=== PATIENT | male | born 1945 | race Caucasian/White ===

== ENCOUNTER 2021-07-05 02:45 | Inpatient (IN) | payer MEDICARE, MEDICAID, SELFPAY ==
[2021-07-05] VITALS (20 sets, daily range): BP systolic 70–118; BP diastolic 30–73; PULSE 53–84; RESP 13–30; TEMP 34.9–37; O2SAT 89–96
--- NOTE | 2021-07-05 | DI.US_ITS ---
Exam(s) US RENAL EXAM: US RENAL CLINICAL HISTORY: SHIRLEY in setting of CKD. TECHNIQUE: Yeung scale, color and spectral Doppler were used. COMPARISON: CT CHEST WITH CONTRAST from 07/29/2016 CT CHEST WITH CONTRAST from 07/29/2016 FINDINGS: The patient refused the complete exam. The left kidney was not able to be imaged. Renal size in cm: Right: 8.8 x 4.6 x 5.6. left: Not imaged Echogenicity: Normal Hydronephrosis: No Cyst or mass: 6.8 centimeter maximal dimension cyst lower pole right kidney. 2 centimeter upper pole cyst. Distal 8 millimeter upper pole cyst. Nephrolithiasis: No Bladder:Normal Prevoid vol: 76 cc Postvoid vol:Patient refused IMPRESSION: Right renal cysts. No evidence of hydronephrosis. Left kidney not imaged. DATA REPOSITORY:
--- NOTE | 2021-07-05 03:00 | W.ED.GENAD ---
Discharge Plan Disposition Patient Disposition: [facility] INPATIENT Condition: Stable Discharge Details Chief Complaint: SOB Clinical Impression: COVID-19, Bacterial pneumonia, Acute kidney injury superimposed on chronic kidney disease, Dyspnea Primary Care Provider: Unknown,Unknown ED Provider: Nishant Montague Home Meds and New Rx's Prescriptions: No Action metoprolol tartrate 100 MG tablet 100 mg PO BID RF: 0 hydrocodone-acetaminophen 1 EACH tablet PO PRN PRNRF: 0 nitroglycerin 0.2 MG patch 24 hour 1 patch Transdermal PRN PRNRF: 0 nitroglycerin 0.4 MG tablet, sublingual 0.4 mg PRN (Reason: Chest Pain) RF: 0 mupirocin calcium 15 GM cream RF: 0 omeprazole 20 MG capsule,delayed release(DR/EC) 20 mg PO DAILY RF: 0 furosemide 20 MG tablet 20 mg PO DAILY RF: 0 rosuvastatin 20 MG tablet 1 tab PO DAILY RF: 0 ipratropium-albuterol 3 ML solution for nebulization 3 ml UPD Q6H Qty: 120 RF: 0 guaifenesin 200 MG/10 ML liquid 200 mg PO Q4H PRN PRN (Reason: Cough) Qty: 480 RF: 0 prednisone 20 MG tablet 20 mg PO DIRECTED Qty: 13 RF: 0 levofloxacin [Levaquin] 750 MG tablet 750 mg PO DAILY Qty: 7 RF: 0 Medical Decision Making 75-year-old male with a past medical history of COPD, alcohol abuse, anemia, chronic kidney disease, coronary artery disease, hypertension, high cholesterol, cirrhosis, chronic tracheostomy, who presents today for evaluation of cough and shortness of breath. Patient states that he has had mild shortness of breath with persistent cough for the last 3 weeks. He admits to a very tiny amount of blood tingeing his sputum when he coughs for the last few days. He admits to some mild chest tightness with cough, but denies any chest pain that is new. Patient was at [facility] emergency department earlier this evening, and departed from there 1 hour prior to arrival here. He drove directly here shortly thereafter. At the [facility] ED he was seen by Dr. Forte, who performed laboratory and cardiac work-up. He was noted to have mild acute kidney injury superimposed on his chronic renal disease, as well as an infiltrative process on his chest x-ray. EKG and troponin were at baseline. He was given fluids out of concern for prerenal etiology, as well as Rocephin and azithromycin. The patient refused his Covid test there. Shortly thereafter the patient stated he wanted to go home and did not want to stay at [facility]. He was sent a prescription for Augmentin and azithromycin for outpatient antibiotics but instead of going home drove directly to [facility] emergency department. Patient denies any other complaints at this time. No other modifying factors. He has not had the Covid vaccine. Physical exam demonstrates diminished lung sounds throughout, oxygenation status stable. Does not appear to be in overt respiratory distress. I did asked what the patient's goals were tonight, and he states that it is to be admitted here as he did not want to be admitted at [facility]. I did personally contact Dr. Forte, and discussed the entire case with him. He also reiterates that he did recommend to the patient that the patient stay overnight due to his age, comorbidities, and findings, but the patient refused statin. I do feel it is reasonable to keep the patient overnight here for further evaluation and management. No major indication to repeat all of his studies. We'll contact the hospitalist for admission. The patient does agree to a Covid test at this time. 4 AM Records from [facility] have been faxed over, x-ray results demonstrate bibasilar opacities that are noted concerning for pneumonia. Blood cultures were ordered and collected. proBNP was only 542. Creatinine was 3.5 and BUN was 72 concerning for a prerenal azotemia here his creatinine has improved after he got a liter of fluid at [facility]. His creatinine is now 3.1, and BUN is 68. His troponin level was normal. Electrolytes were otherwise stable. He was given 1 L of normal saline, 500 mg of azithromycin, 1 g of ceftriaxone. EKG shows sinus rhythm at 69 with no ischemic changes. 4:37 AM Covid test is returned positive. The patient is out of the window for monoclonal antibody therapy at this time. All the patient's multiple medical comorbidities, age, his bacterial pneumonia, and now also his positive Covid status I do feel that he would benefit from inpatient admission. His acute on chronic renal disease is certainly improved with the IV fluids and I feel he continues to benefit from more IV fluids. We'll do normal saline at 125 an hour. We'll give 10 mg of Decadron. Discussed the case with the hospitalist Dr. Bowie he accepts the patient for admission. I will place bridging orders on his behalf. I have extensively reviewed the treatment plan with the patient. I have addressed all patient concerns at this time. I have also discussed the plan with the admitting physician and they agree with the current assessment and plan and have agreed to assume responsibility for the patient. All parties demonstrate verbal understanding and agreement with our assessment and plan at this time. The documentation in this chart was dictated using Kamida dictation software. Please excuse any dictation errors. HPI General Date/Time Provider Initiated Documentation: 07/05/21 02:48. HPI Narrative: 75-year-old male with a past medical history of COPD, alcohol abuse, anemia, chronic kidney disease, coronary artery disease, hypertension, high cholesterol, cirrhosis, chronic tracheostomy, who presents today for evaluation of cough and shortness of breath. Patient states that he has had mild shortness of breath with persistent cough for the last 3 weeks. He admits to a very tiny amount of blood tingeing his sputum when he coughs for the last few days. He admits to some mild chest tightness with cough, but denies any chest pain that is new. Patient was at [facility] emergency department earlier this evening, and departed from there 1 hour prior to arrival here. He drove directly here shortly thereafter. At the [facility] ED he was seen by Dr. Forte, who performed laboratory and cardiac work-up. He was noted to have mild acute kidney injury superimposed on his chronic renal disease, as well as an infiltrative process on his chest x-ray. EKG and troponin were at baseline. He was given fluids out of concern for prerenal etiology, as well as Rocephin and azithromycin. The patient refused his Covid test there. Shortly thereafter the patient stated he wanted to go home and did not want to stay at [facility]. He was sent a prescription for Augmentin and azithromycin for outpatient antibiotics but instead of going home drove directly to [facility] emergency department. Patient denies any other complaints at this time. No other modifying factors. He has not had the Covid vaccine. Related Data Home Medications Medication Instructions Recorded Confirmed furosemide 20 mg PO DAILY 07/29/16 07/29/16 hydrocodone-acetaminophen PO PRN PRN 07/29/16 metoprolol tartrate 100 mg PO BID 07/29/16 07/29/16 mupirocin calcium 07/29/16 nitroglycerin 0.4 mg PRN 07/29/16 nitroglycerin 1 patch TRANSDERMAL PRN PRN 07/29/16 07/29/16 omeprazole 20 mg PO DAILY 07/29/16 07/29/16 rosuvastatin 1 tab PO DAILY 07/29/16 07/29/16 guaifenesin 200 mg PO Q4H PRN PRN #480 ml 08/01/16 ipratropium-albuterol 3 ml UPD Q6H #120 vial 08/01/16 levofloxacin [Levaquin] 750 mg PO DAILY #7 tablet 08/01/16 prednisone 20 mg PO DIRECTED #13 tab 08/01/16 Previous Rx's Medication Instructions Recorded guaifenesin 200 mg PO Q4H PRN PRN #480 ml 08/01/16 ipratropium-albuterol 3 ml UPD Q6H #120 vial 08/01/16 levofloxacin [Levaquin] 750 mg PO DAILY #7 tablet 08/01/16 prednisone 20 mg PO DIRECTED #13 tab 08/01/16 Allergies Allergy/AdvReac Type Severity Reaction Status Date / Time No Known Allergies Allergy Verified 07/29/16 02:35 Review of Systems All systems reviewed & are unremarkable except as noted in HPI and below PFSH Social History Smoking/Tobacco Use Status: Current every day Smoking risk assessment performed?: Yes Drug use: Never Do you feel safe at home: Yes Do you feel safe in your relationship?: Yes Exam Narrative Exam Narrative: 1.Const: Well-nourished, Well-developed, appearing stated age 2.Eyes: PERRL, no conjunctival injection, and symmetrical lids. 3.ENT: Atraumatic external nose and ears. Moist MM. Neck: Symmetric, trachea midline, No thyromegaly. Tracheostomy in place and unremarkable on exam 4.CVS: +S1/S2, No murmurs or gallops. Peripheral pulses 2+ and equal in all extremities. Brisk capillary refill in all extremities. 5.RESP: Unlabored respiratory effort. Diminished lung sounds throughout 6.GI: Soft, Nontender/Nondistended, No hepatosplenomegaly. No guarding or rebound. 7.MSK: Normocephalic/Atraumatic, Extremities w/o deformity or ttp No cyanosis or clubbing, Normal movement of all extremities 8.Skin: Warm, Dry. No rashes or lesions. 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 Sensation grossly intact, no focal neurologic deficits. 10.Psych: (AAO) x3. Appropriate mood and affect
[2021-07-05 03:37] LABS: Source Nasal/Nares
[2021-07-05 03:38] LABS: BE (Venous) -3 mmol/L (-2-3); HCO3 (Venous) 23 mmol/L (23-28); O2 Sat (Venous) 20 %; TCO2 (Venous) 21 mmol/L (24-29); pCO2 (Venous) 44 mmHg (41-51); pH (Venous) 7.33 (7.31-7.41); pO2 (Venous) 16 mmHg
[2021-07-05 03:42] LABS: Abs Immature Grans 0.06 10^3/uL (0.0-0.06); Absolute Basophil Count 0.02 10^3/uL (0.0-0.2); Absolute Lymphocyte Count 0.92 10^3/uL (1.2-3.4); Absolute Monocyte Count 0.86 10^3/uL (0.1-0.8); Absolute Neutrophil Count 3.26 10^3/uL (1.2-6.7); Basophils % 0.4; HCT 46.7 % (40.0-50.0); Immature Grans % 1.2; MCH 29.5 pg (27.0-33.0); MCHC 32.1 % (32.0-36.0); MCV 91.9 fL (80-95); MPV 10.7 fL (8.0-11.0); Monocytes % 16.8; Neutrophils % 63.6; Nucleated RBC 0 %; Platelet Count 216 10^3/uL (130-400); RBC 5.08 10^6/uL (4.36-5.78); RDW 16.3 % (11.8-14.1); RDW-SD 55.7 fL; WBC 5.12 10^3/uL (4.4-10.8)
[2021-07-05 03:53] LABS: BUN 68 mg/dL (7-18); CREATININE 3.1 mg/dL (0.70-1.30); Calcium 10.3 mg/dL (8.5-10.1); Estimated GFR 19.85 (mL/min/1.73m2); Glucose 109 mg/dL (74-106)
[2021-07-05 03:54] LABS: ALT 16 U/L (16-63); AST 32 U/L (15-37); Albumin 3.4 g/dL (3.4-5.0); Alkaline Phosphatase 74 U/L (46-116); Anion Gap 12.8 mmol/L (3-11); Bilirubin, Total 0.5 mg/dL (0.2-1.0); CO2 23.2 mmol/L (21.0-32.0); Chloride 109 mmol/L (98-107); Potassium 4.5 mmol/L (3.5-5.1); Sodium 145 mmol/L (136-145)
[2021-07-05 04:27] LABS: COVID-19 PCR POSITIVE (Negative)
[2021-07-05] MEDS: Dexamethasone 10 MG/ML VIAL IVP (04:39)
[2021-07-05] MEDS: Normal Saline 1,000 ML 125 ML IV (04:49)
--- NOTE | 2021-07-05 08:38 | HPE_ITS ---
Date of service: 07/05/21 Time of Service: 08:38 Assessment and Plan Assessment and plan (1) Bacterial pneumonia: Status: Acute Assessment and plan: Continue ceftriaxone and azithromycin. Add Acapella and incentive spirometry to his pulmonary toiletry. Use Combivent inhaler via trach mask 4 times daily. As needed albuterol as needed for acute bronchospasm. Provide supplemental oxygen via trach mask. (2) COVID-19: Status: Acute Assessment and plan: Initiate treatment for COVID-19 with Decadron and Remdesivir. Patient is out of the window for antiviral monoclonal antibodies. Recommended proning procedure if he will cooperate. Encourage pulmonary toiletry and early ambulation as tolerated. Monitor daily labs including CBC CMP as well as inflammatory markers including CRP ferritin and D-dimer. Because of his acute on chronic kidney injury he is not a candidate for enoxaparin therefore we will put him on heparin prophylactic therapy. If we see a rise in his D-dimer greater than 2500 consider full dose anticoagulation. (3) Acute kidney injury superimposed on chronic kidney disease: Status: Acute Assessment and plan: Check renal ultrasound. Place Trejo catheter for close monitoring of his urine output. Discontinue IV fluid supplementation in light of his COVID 19 pneumonia (4) Coronary artery disease: Status: Chronic Assessment and plan: Continue his current statin treatment of with rosuvastatin continue nitroglycerin patch and as needed nitroglycerin tablets. Check a troponin level. Monitor on telemetry for any cardiac involvement from his COVID-19 Qualifiers: Coronary Disease-Associated Artery/Lesion type: [place] artery [place] vs. transplanted heart: [place] heart Associated angina: without angina Qualified Code(s): I25.10 - Atherosclerotic heart disease of [place] coronary artery without angina pectoris (5) Alcohol abuse: Status: Chronic Assessment and plan: We will place the patient on folate multivitamin and thiamine and monitor for acute alcohol withdrawal with CIWA protocol History of Present Illness History of Present Illness Chief Complaint: Shortness of breath Narrative: 75-year-old white male with history of COPD status post chronic tracheostomy, anemia, chronic kidney disease, hypertension, coronary artery disease, ci rrhosis, chronic alcohol abuse who presented to [facility] emergency department last night with a 3-week history of shortness of breath and persistent cough. He is unvaccinated for COVID-19 and while in the emergency department he was treated by Dr. Forte who ordered laboratory work-up and [facility] x-ray EKG and troponin level. He was found to have acute kidney injury in the setting of chronic kidney disease with a creatinine 3.5 and a BUN of 72 was felt to be in prerenal azotemia and was given a liter of normal saline. Chest x-ray demonstrated bibasilar opacities concerning for pneumonia and blood cultures were ordered and collected. He was given 1 g of ceftriaxone and 500 mg of azithromycin. Patient refused to COVID test and although he was advised to be admitted for treatment of his acute kidney injury and pneumonia he declined admission at [facility] and drove himself to [facility] emergency department where he was seen by Dr. Nishant Montague. In the ER a Covid test was obtained and he was found to be positive for SARS-CoV-2. As the patient was out of the window for monoclonal antibody treatment it was recommended he be hospitalized and started on Decadron and Remdesivir. Patient will be continued on antibiotic treatment for community-acquired pneumonia as well. Patient is nonverbal due to his tracheostomy and when I went into his room he had a mask over his face and was ignoring my questions. After much prompting and arousal he would nod yes and no to a few of my questions. Patient was started on Decadron 10 mg IV while in our emergency department. Dr. Montague kept him on IV fluids of normal saline at 125 mL/h which I have since discontinued. Patient is indicated to me inability to void. We will obtain a bladder scan and catheterize as needed. We will also get a renal ultrasound to assess his acute kidney injury. Patient's been placed in respiratory isolation due to his COVID- 19 and remdesivir will be started in addition to his Decadron. Although medical records were faxed from [facility] to our emergency department no records were sent up with the patient. I have asked the secretarial staff on the medical/surgical floor to try to obtain records from [facility]. Review of Systems Unobtainable due to endotracheal tube (Due to tracheostomy and patient's unwillingness to engage) [facility] Medical History (Updated 07/05/21 @ 09:34 by Michael Bowie) Alcohol abuse Chronic kidney disease Cirrhosis COPD with exacerbation Coronary artery disease Surgical History Status post tracheostomy Social History Smoking/Tobacco Use Status: Current every day Smoking risk assessment performed?: Yes Drug use: Never Do you feel safe at home: Yes Do you feel safe in your relationship?: Yes Meds Allergies and Home Medications Allergies Allergy/AdvReac Type Severity Reaction Status Date / Time No Known Allergies Allergy Verified 07/29/16 02:35 Home Medications Medication Instructions Recorded Confirmed Type furosemide 20 mg PO DAILY 07/29/16 07/05/21 History hydrocodone-acetaminophen PO PRN PRN 07/29/16 History metoprolol tartrate 100 mg PO BID 07/29/16 07/05/21 History mupirocin calcium 07/29/16 History nitroglycerin 0.4 mg PRN 07/29/16 History nitroglycerin 1 patch TRANSDERMAL PRN PRN 07/29/16 07/05/21 History omeprazole 20 mg PO DAILY 07/29/16 07/05/21 History rosuvastatin 1 tab PO DAILY 07/29/16 07/05/21 History guaifenesin 200 mg PO Q4H PRN PRN #480 ml 08/01/16 07/05/21 Rx ipratropium-albuterol 3 ml UPD Q6H #120 vial 08/01/16 07/05/21 Rx levofloxacin [Levaquin] 750 mg PO DAILY #7 tablet 08/01/16 07/05/21 Rx prednisone 20 mg PO DIRECTED #13 tab 08/01/16 07/05/21 Rx Exam Narrative Exam Narrative: Cachectic appearing elderly gentleman unshaven with a tracheostomy. He appears to be in no acute respiratory distress not using accessory respiratory muscles. Neck is supple nontender no JVD normal carotid pulses Lungs with diffusely diminished breath sounds Heart is regular rate and rhythm Abdomen soft nontender there is some slight suprapubic distention Extremities with muscle wasting but no edema or cyanosis Neuro exam grossly intact no focal motor or sensory deficits no facial asymmetry speech unable to be assessed due to his tracheostomy. Results Labs Result diagrams: 07/05/21 03:30 07/05/21 03:30 Labs: Laboratory Results - last 24 hr 07/05/21 07/05/21 07/05/21 03:30 03:30 03:30 WBC 5.12 RBC 5.08 Hgb 15.0 Hct 46.7 MCV 91.9 MCH 29.5 MCHC 32.1 RDW 16.3 H Plt Count 216 MPV 10.7 Immature Gran % 1.2 Neutrophils % 63.6 Lymphocytes % 18.0 Monocytes % 16.8 Eosinophils % 0.0 Basophils % 0.4 Nucleated RBC % 0 Absolute Neutrophils 3.26 Absolute Lymphocytes 0.92 L Absolute Monocytes 0.86 H Absolute Eosinophils 0.00 Absolute Basophils 0.02 VBG pH VBG pCO2 VBG pO2 VBG HCO3 VBG Total CO2 VBG O2 Saturation VBG Base Excess Sodium 145 Potassium 4.5 Chloride 109 H Carbon Dioxide 23.2 Anion Gap 12.8 H BUN 68 H Creatinine 3.1 H Estimated GFR/1.73 m2 19.85 Glucose 109 H Calcium 10.3 H Total Bilirubin 0.5 AST 32 ALT 16 Alkaline Phosphatase 74 Total Protein 8.0 Albumin 3.4 COVID-19 Source Nasal/Nares SARS-CoV-2 (PCR) POSITIVE A* 07/05/21 03:30 WBC RBC Hgb Hct MCV MCH MCHC RDW Plt Count MPV Immature Gran % Neutrophils % Lymphocytes % Monocytes % Eosinophils % Basophils % Nucleated RBC % Absolute Neutrophils Absolute Lymphocytes Absolute Monocytes Absolute Eosinophils Absolute Basophils VBG pH 7.33 VBG pCO2 44 VBG pO2 16 VBG HCO3 23 VBG Total CO2 21 L VBG O2 Saturation 20 VBG Base Excess -3 L Sodium Potassium Chloride Carbon Dioxide Anion Gap BUN Creatinine Estimated GFR/1.73 m2 Glucose Calcium Total Bilirubin AST ALT Alkaline Phosphatase Total Protein Albumin COVID-19 Source SARS-CoV-2 (PCR) Last Vital Signs Temp 35.4 C L 07/05/21 06:09 Pulse 60 07/05/21 07:00 Resp 20 07/05/21 06:09 BP 100/46 L 07/05/21 06:09 Pulse Ox 91 L 07/05/21 08:02
--- NOTE | 2021-07-05 09:07 | INITIAL_ITS ---
- If Service Date Differs Date of service: 07/05/21 Time of Service: 09:07 Care Management Initial Assess REASON FOR HOSPITALIZATION:: COVID Pneumonia PAST MEDICAL HISTORY/PAST SURGICAL HISTORY:: COPD PREVIOUS FUNCTIONAL STATUS/SOCIAL/FAMILY SUPPORTS:: Liu resides in [place] with his . He has a trach at baseline and is on 2L O2 through [facility] or [employer]. His daughter, Heavenly provides all of his care and monitors his medicati ons. She reports her mother, Zeyenp recently had her foot amputated, so requires support as well. Heavenly states that Liu has had lung cancer for 13 years and was previously on chemo, and Palliative care, but currently has no supports in the home. Heavenly states she provides Liu's trach care. CURRENT FUNCTIONAL STATUS:: Liu is reportedly curled in a ball, refusing to engage with RT. CM attempted to call Zeynep-phone disconnect. Heavenly-left VM. CM also called [place] CM department to inquire to family contact information and home O2 supplier. Today is a holiday, DME and CM office closed today. CM continues to follow. Saurav from RT, reported that later in the day, Liu was much more engaged, and talkative. ADVANCE DIRECTIVES:: Ernestina as agent, Zeynep as alternate, Jamee and Heavenly as others. Has patient been provided with info about the portal/API?: No Did the patient sign up for the portal?: No CODE STATUS:: Full Code INSURANCE COVERAGE / FINANCIAL ISSUES:: Medicare. Medicaid CURRENT HOME/COMMUNITY SERVICES/EQUIPMENT:: Trach, Home O2 PRIMARY CARE PHYSICIAN:: Heavenly Pritchard in [place]; unable to confirm. POTENTIAL DISCHARGE NEEDS:: Follow up with PCP. PATIENT/FAMILY EDUCATION NEEDS:: Review of discharge instructions, discuss [facility] Me [employer]. ANTICIPATED BARRIERS TO DISCHARGE:: None identified. TRANSPORTATION:: Via private vehicle with family. PLAN:: Liu will return home when ready per MD. He will resume home O2, follow up with his PCP and plan of care as prescribed. He will transport via private vehicle with family.
[2021-07-05] MEDS: Azithromycin 250 MG TAB PO (09:50)
[2021-07-05] MEDS: Ipratropium/Albuterol 4 GM 120 PUFF INH IH ×4 (09:51→22:23)
[2021-07-05] MEDS: cefTRIAXone 2 GM/50 ML BAG IVPB (09:51)
[2021-07-05] MEDS: Normal Saline Flush 10 ML SYR IVP (09:53)
[2021-07-05] MEDS: REMDESIVIR 200 MG in Normal Saline 250 ML 250 MG IVPB (09:53)
[2021-07-05] MEDS: Folic Acid 1 MG TAB PO (10:02)
[2021-07-05] MEDS: Heparin 5,000 UNITS/ML VIAL 5000 UNITS SC ×2 (11:05→17:06)
[2021-07-05] MEDS: Lactated Ringers 500 ML 250 ML IV ×2 (11:06→21:28)
[2021-07-05] MEDS: Multivitamin TAB 1 TAB PO (11:07)
[2021-07-05] MEDS: Rosuvastatin 10 MG TAB 20 MG PO (11:07)
[2021-07-05] MEDS: THIAMINE 100 MG in Normal Saline 100 ML 200 MG IVPB (11:08)
[2021-07-05 12:00] LABS: Troponin I < 0.05 ng/mL (<0.06)
[2021-07-05 12:23] LABS: Procalcitonin < 0.1 ng/mL
[2021-07-05] MEDS: Mupirocin 2% 15 GM TUBE TP ×2 (13:53→17:06)
[2021-07-05] MEDS: Lactated Ringers 1,000 ML 125 ML IV (20:30)
--- NOTE | 2021-07-05 22:00 | RT.EKG_ITS ---
APPROVED REPORT Exam: Resting ECG Reason for Exam: Chest pain Patient Location: I HR:62 bpm ECG Measurements Heart Rate 62 AXIS VT 141 P 99 QRSd 99 QRS 60 QT 428 T 51 QTc 407 Conclusion Sinus bradycardia...rate< 60
[2021-07-05] MEDS: nitroGLYcerin 0.4 MG TAB SL (22:11)
[2021-07-05 22:50] LABS: HGB 12.5 g/dL (13.5-17.5); MCH 29.8 pg (27.0-33.0); MCHC 32.9 % (32.0-36.0); MCV 90.7 fL (80-95); MPV 10.7 fL (8.0-11.0); Platelet Count 201 10^3/uL (130-400); RBC 4.19 10^6/uL (4.36-5.78); RDW 16.2 % (11.8-14.1); RDW-SD 54.3 fL; WBC 4.87 10^3/uL (4.4-10.8)
[2021-07-05 23:30] LABS: BUN 59 mg/dL (7-18); CREATININE 2.1 mg/dL (0.70-1.30); Calcium 9.4 mg/dL (8.5-10.1); Estimated GFR 31.11 (mL/min/1.73m2); Glucose 144 mg/dL (74-106)
[2021-07-05 23:31] LABS: Anion Gap 9.4 mmol/L (3-11); CO2 20.6 mmol/L (21.0-32.0); Chloride 115 mmol/L (98-107); Potassium 4.1 mmol/L (3.5-5.1); Sodium 145 mmol/L (136-145); Troponin I < 0.05 ng/mL (<0.06)
[2021-07-06] VITALS (115 sets, daily range): BP systolic 64–147; BP diastolic 23–121; PULSE 49–180; RESP 12–41; TEMP 35.8–36.5; O2SAT 88–96
--- NOTE | 2021-07-06 | DI.CT_ITS ---
Exam(s) CT ABDOMEN PELVIS WO EXAM: CT ABDOMEN PELVIS WO CLINICAL HISTORY: ascites, hypotension, abd pain TECHNIQUE: COMPARISON: No exams were available for comparison FINDINGS: CT examination of the abdomen and pelvis was performed without contrast administration. Note is made of coronary artery calcification. Heart is not enlarged. Images obtained through the lung bases show multiple areas of ground-glass opacification and consolid ation, please correlate regarding the possibility of acute infectious process. There are multiple low-attenuation lesions of the liver and kidneys consistent with cysts, the larges t is an 8 cm in diameter left renal presumed cyst. There are nonobstructing calculi of the left kidney. There is also an obstructing calculus of the le ft ureteropelvic junction measuring about 7 millimeters in greatest diameter with moderate associated left hydronephrosis. No right renal calcification or hydronephrosis seen. No additional ureteral calcification. Spleen is unremarkable in appearance. Pancreas appears atrophic but otherwise unremarkable. No bili randell dilatation. Abdominal aorta is of normal diameter. No gross abdominal wall hernia. Bowel is poorly visualized due to motion artifact. No evidence of bowel obstruction. Appendix is no rmal. No gross diverticulitis. There is a Trejo catheter in the urinary bladder which is empty. No ascites. No free intraperitoneal air. Slightly enlarged lymph node which probably lies in the si gmoid mesocolon, measuring about 14 millimeters in diameter. No gross adenopathy seen elsewhere in t he abdomen or pelvis. IMPRESSION: 7 millimeter in diameter obstructing left ureteropelvic junction calculus. Additional non-obstructing left renal calculi are also seen. Pulmonary findings suggestive of patchy multifocal bibasilar pneumonia. RADIATION DOSE DELIVERED: 720.66mGy.cm Total DLP CTDIvol RADIATION OPTIMIZATION: All CT scans at this facility use at least one of these dose optimization te chniques: automated exposure control; mA and/or kV adjustment per patient size (includes targeted exa ms where dose is matched to clinical indication); or iterative reconstruction.
--- NOTE | 2021-07-06 00:05 | NUR.NOTE ---
Nursing Note: Transferred to ICU 2335. Report taken by Mary Presley RN. Clothing accompanied patient.
--- NOTE | 2021-07-06 00:08 | PGE_ITS ---
Date of Service Date of service: 07/05/21 Time of Service: 23:49 Assessment and Plan Assessment and plan (1) Hypotension: Status: Acute Assessment and plan: His kidney function has improved. His blood pressure has stabilized with the IV fluids. His troponin is negative. At the present time we'll back off on the fluid administration from 125 cc an hour to 100 cc an hour. He will be watched the intensive care unit. Subjective Subjective Interval history since last seen: Nursing staff called about 1 hour ago with a blood pressure 70 systolic. Patient was having some difficulty with mentation but that seemed to improve with a bolus of Ringer's lactate of 250 cc. His pre ssure went up to approximately 70 systolic. Patient also complained of some chest pain that was not relieved with nitroglycerin. Labs and electrocardiogram ordered and the patient was moved to the intensive care unit. Upon presentation here in the ICU his blood pressure went up to 92/50 without other intervention. Exam Const General: cooperative, no acute distress and ill appearing GI Inspection: non-distended Palpation: no hepatosplenomegaly and nontender Extrem General: normal to inspection, no pedal edema and no calf tenderness Objective Last Vital Signs Temp 35.8 C L 07/05/21 22:16 Pulse 58 L 07/05/21 22:16 Resp 26 H 07/05/21 22:16 BP 75/45 L 07/05/21 22:16 Pulse Ox 94 07/05/21 22:16 Laboratory Results - last 24 hr 07/05/21 07/05/21 07/05/21 03:30 03:30 03:30 WBC 5.12 RBC 5.08 Hgb 15.0 Hct 46.7 MCV 91.9 MCH 29.5 MCHC 32.1 RDW 16.3 H Plt Count 216 MPV 10.7 Immature Gran % 1.2 Neutrophils % 63.6 Lymphocytes % 18.0 Monocytes % 16.8 Eosinophils % 0.0 Basophils % 0.4 Nucleated RBC % 0 Absolute Neutrophils 3.26 Absolute Lymphocytes 0.92 L Absolute Monocytes 0.86 H Absolute Eosinophils 0.00 Absolute Basophils 0.02 VBG pH VBG pCO2 VBG pO2 VBG HCO3 VBG Total CO2 VBG O2 Saturation VBG Base Excess Sodium 145 Potassium 4.5 Chloride 109 H Carbon Dioxide 23.2 Anion Gap 12.8 H BUN 68 H Creatinine 3.1 H Estimated GFR/1.73 m2 19.85 Glucose 109 H Calcium 10.3 H Total Bilirubin 0.5 AST 32 ALT 16 Alkaline Phosphatase 74 Troponin I Total Protein 8.0 Albumin 3.4 Procalcitonin COVID-19 Source Nasal/Nares SARS-CoV-2 (PCR) POSITIVE A* Patient ABO/Rh Antibody Screen 07/05/21 07/05/21 07/05/21 03:30 11:30 11:30 WBC RBC Hgb Hct MCV MCH MCHC RDW Plt Count MPV Immature Gran % Neutrophils % Lymphocytes % Monocytes % Eosinophils % Basophils % Nucleated RBC % Absolute Neutrophils Absolute Lymphocytes Absolute Monocytes Absolute Eosinophils Absolute Basophils VBG pH 7.33 VBG pCO2 44 VBG pO2 16 VBG HCO3 23 VBG Total CO2 21 L VBG O2 Saturation 20 VBG Base Excess -3 L Sodium Potassium Chloride Carbon Dioxide Anion Gap BUN Creatinine Estimated GFR/1.73 m2 Glucose Calcium Total Bilirubin AST ALT Alkaline Phosphatase Troponin I < 0.05 Total Protein Albumin Procalcitonin COVID-19 Source SARS-CoV-2 (PCR) Patient ABO/Rh O Positive Antibody Screen NEGATIVE 07/05/21 07/05/21 07/05/21 11:30 22:30 22:30 WBC 4.87 RBC 4.19 L Hgb 12.5 L D Hct 38.0 L MCV 90.7 MCH 29.8 MCHC 32.9 RDW 16.2 H Plt Count 201 MPV 10.7 Immature Gran % Neutrophils % Lymphocytes % Monocytes % Eosinophils % Basophils % Nucleated RBC % Absolute Neutrophils Absolute Lymphocytes Absolute Monocytes Absolute Eosinophils Absolute Basophils VBG pH VBG pCO2 VBG pO2 VBG HCO3 VBG Total CO2 VBG O2 Saturation VBG Base Excess Sodium 145 Potassium 4.1 Chloride 115 H Carbon Dioxide 20.6 L Anion Gap 9.4 BUN 59 H Creatinine 2.1 H D Estimated GFR/1.73 m2 31.11 Glucose 144 H Calcium 9.4 Total Bilirubin AST ALT Alkaline Phosphatase Troponin I < 0.05 Total Protein Albumin Procalcitonin < 0.1 COVID-19 Source SARS-CoV-2 (PCR) Patient ABO/Rh Antibody Screen
[2021-07-06 00:30] LABS: D-Dimer 743 ng/mlFEU (<500)
[2021-07-06] MEDS: Heparin 5,000 UNITS/ML VIAL 5000 UNITS SC ×4 (01:00→22:42)
[2021-07-06] MEDS: Lactated Ringers 1,000 ML 125 ML IV (01:01)
[2021-07-06 02:09] LABS: *AMPHETAMINES SCREEN URINE Negative (Negative); *BARBITURATES SCREEN URINE Negative (Negative); *BENZODIAZEPINES SCREEN URINE Negative (Negative); Cannabinoids THC Negative (Negative); Cocaine Screen,Urine Negative (Negative); METHADONE URINE SCREEN Negative (Negative); OPIATES URINE SCREEN Positive (Negative); Tricyclic Antidepressants Negative (Negative)
[2021-07-06] MEDS: HYDROcodone 5/Acetaminophen 325 TAB PO ×3 (04:11→20:11)
[2021-07-06] MEDS: POTASSIUM CHLORIDE 20 MEQ/100 ML BAG 50 MEQ IVPB (04:13)
[2021-07-06] MEDS: Polyethylene Glycol 3350 17 GM PACKET PO (06:25)
[2021-07-06] MEDS: Docusate Sodium 100 MG CAP PO (06:25)
--- NOTE | 2021-07-06 06:45 | RT.EKG_ITS ---
APPROVED REPORT Exam: Resting ECG Reason for Exam: SVT Patient Location: I HR:142 bpm ECG Measurements Heart Rate 142 AXIS SC [id number] P [id number] QRSd 81 QRS 59 QT 271 T 250 QTc 417 Conclusion Atrial fibrillation...V-rate 82-211, irreg A-activity Repolarization abnormality, prob rate related...ST dep, T neg, tachycardia
[2021-07-06] MEDS: dilTIAZem 25 MG/5 ML VIAL 15 MG IVP (07:13)
[2021-07-06 07:49] LABS: Abs Immature Grans 0.06 10^3/uL (0.0-0.06); Absolute Basophil Count 0.01 10^3/uL (0.0-0.2); Absolute Lymphocyte Count 0.86 10^3/uL (1.2-3.4); Absolute Monocyte Count 0.69 10^3/uL (0.1-0.8); Basophils % 0.1; HGB 13.5 g/dL (13.5-17.5); Immature Grans % 0.9; Lymphocytes % 12.5; MCH 29.9 pg (27.0-33.0); MCHC 32.9 % (32.0-36.0); MCV 90.9 fL (80-95); MPV 10.7 fL (8.0-11.0); Neutrophils % 76.5; Nucleated RBC 0 %; Platelet Count 221 10^3/uL (130-400); RBC 4.51 10^6/uL (4.36-5.78); RDW 16.3 % (11.8-14.1)
[2021-07-06 07:50] LABS: Absolute Neutrophil Count 5.26 10^3/uL (1.2-6.7)
[2021-07-06 07:51] LABS: WBC 6.87 10^3/uL (4.4-10.8)
[2021-07-06 08:19] LABS: Calcium 9.5 mg/dL (8.5-10.1)
[2021-07-06 08:20] LABS: ALT 11 U/L (16-63); AST 21 U/L (15-37); Albumin 2.6 g/dL (3.4-5.0); Alkaline Phosphatase 60 U/L (46-116); BUN 58 mg/dL (7-18); Bilirubin, Total 0.3 mg/dL (0.2-1.0); CREATININE 2.3 mg/dL (0.70-1.30); Chloride 113 mmol/L (98-107); Estimated GFR 28.01 (mL/min/1.73m2); Ferritin 119 ng/mL (26-388); Glucose 111 mg/dL (74-106); Sodium 146 mmol/L (136-145); TSH (W/Ref FT4) 0.33 uIU/mL (0.36-3.74); Total Protein 6.3 g/dL (6.4-8.2)
[2021-07-06 08:29] LABS: D-Dimer 824 ng/mlFEU (<500); INR 1.3 (0.9-1.1); Prothrombin Time 12.9 sec (9.3-11.0)
[2021-07-06 08:36] LABS: C-Reactive Protein 2.93 mg/dL (0.0-0.3); FREE T4 1.43 ng/dL (0.76-1.46)
[2021-07-06] MEDS: Lactated Ringers 1,000 ML 100 ML IV (08:49)
[2021-07-06] MEDS: Thiamine 100 MG TAB PO (08:54)
[2021-07-06] MEDS: Multivitamin TAB 1 TAB PO (08:54)
[2021-07-06] MEDS: Rosuvastatin 10 MG TAB 20 MG PO (08:54)
[2021-07-06] MEDS: Dexamethasone 4 MG/ML VIAL 6 MG IVP (08:54)
[2021-07-06] MEDS: Omeprazole 20 MG CAPCR PO (08:54)
[2021-07-06] MEDS: Azithromycin 250 MG TAB PO (08:54)
[2021-07-06] MEDS: Mupirocin 2% 15 GM TUBE TP ×4 (08:56→21:27)
[2021-07-06] MEDS: Folic Acid 1 MG TAB PO (08:56)
--- NOTE | 2021-07-06 09:11 | PUCC_ITS ---
General Date of Service Date of service: 07/06/21 Time of Service: 07:30 Reason for Admission to ICU: Afib with RVR COVID Hypotension Assessment and Plan Assessment and plan (1) Left ureteral stone: Status: Acute (2) Atrial fibrillation with rapid ventricular response: Status: Acute (3) Hypotension: Status: Acute (4) Alcohol abuse: Status: Chronic (5) COPD (chronic obstructive pulmonary disease): Status: Chronic (6) COVID-19: Status: Acute (7) Acute kidney injury superimposed on chronic kidney disease: Status: Acute (8) Ascites: Status: Acute Assessment and plan: This is a 75 yo man with COPD and a chronic tracheostomy who has COVID and is admitted to the ICU for atrial fibrillation with RVR and hypotension. He had worsened hypotension in the setting of receiving diltiazem and his heart rate had remained uncontrolled. On FAST exam he also has what is likely ascites and so I recommended a CT Abd/Pel given an unclear history and significant abdominal pain on exam. This CT found a 7mm obstructing stone for which Urology was consulted and recommended a conservative approach to see if the stone would pass on its own. The pain from this could be the cause for his difficult to control A. fib. I do not beleive he has a bacterial pneumonia based on labs, imaging and clinical picture. Recommendations Pulmonary: COPD - not in exacerbation - continue patients home regimen - Breo and Incruse (Symbicort and Incruse while admitted) - discontinue Combivent - Xopenex prn - try to obtain speaking valve and inner cannula for trach Cardiac: Atrial Fibrillation with RVR - recommend esmolol for a goal HR <110 - recommend starting home metoprolol 12.5 in the morning if blood pressure remains stable - if vasopressor is needed would favor phenylephrine to limit tachycardia - this has the potential do decrease cardiac output in the setting of esmolol so monitor closely - can consider starting anticoagulation once more stable Hypotension - likely due to A. fib - phenylephrine if required - caution as above Renal: Obstruction renal stone - urology on board - pain control - Trejo catheter - can likely discontinue fluids in the morning and monitor UOP I&O: Intake & Output 07/03/21 07/04/21 07/05/21 07/06/21 23:59 23:59 23:59 23:59 Intake Total 901 / 901 1572.583 / 1572.583 Output Total 325 / 325 230 / 230 Balance 576 / 576 1342.583 / 1342.583 Weight 65.771 kg 68.5 kg Daily Fluid Goal:: even to slightly positive GI Nutrition: OK for diet Date of Last Bowel Movement: 07/05/21 Infectious Disease: COVID - receiving Decadron and remdesivir as well as azithromycin - I do not think he requires azithromycin - O2 support for sats 88-92 Hematologic: Elevated INR - i nthe setting of cirrhosis Neurologic: Poor historian Delirium prevention measures Endocrine: Monitor glucose levels Prophylaxis: heparin, on home omeprazole Code Status: Resuscitation Status Full Code Subjective Critical and life-threatening events over the past 24 hours: This is a complicated 75 yo man with COPD and a chronic tracheostomy, liver cirrhosis and a poor historian who was admitted to the ICU for hypotension and A. fib with RVR. He also has COVID, however has mild disease. Upon my assessment this morning his heart rate was in the 140's to 150's. He had previously received a diltiazem bolus which dropped his blood pressure. His blood pressure is low as well wih MAP's in the 50's. On my assessment he complains of abdominal pain. He denies trouble breathing. He has his trach in place with a trach collar but does not have a speaking valve with him. He tells me he does not drink and has no liver issues, but has both of these issues documented in his problem list. He also tells me he does not think he has ever had A.fib. He also complains of constipation over several days. Exam Narrative Exam Narrative: POCUS 07/06/21: Views limited by both lung air and bowel air. 4 chamber view and subxyphoid view seen satisfactorily. LV is hyperdynamic. No RV dysfunction. Likely a normal EF. No pericardial effusion. Plethoric IVC. Abdo karuna FAST exam performed: There is free fluid in Morisons pouch and fluid seen at the interface of the spleen and kidney. Bladder appears normal. Const General: no acute distress Nutritional Appearance: well nourished [facility] Head: normocephalic Ears: external ears normal and no periauricular adenopathy General nose exam: nasal mucous membranes and turbinates normal Face and sinus: sinuses nontender Mouth: oropharynx normal and moist mucous membranes Teeth and gingiva: other (tracheostomy in place) Eyes General: appearance normal, both eyes and all related structures Pupils: PERRL Neck Neck: normal visual inspection and no lymphadenopathy Chest Chest: normal inspection of the chest Resp Effort & Inspection: normal respiratory effort Auscultation: clear to auscultation bilaterally, no rales, no rhonchi and no wheezes Cardio Rate: regular rate Rhythm: regular rhythm Heart Sounds: S1 normal, S2 normal and no murmurs Pulses: radial pulses present bilaterally GI Inspection: normal to inspection Palpation: tender and ascites Skin General skin exam: no rashes or lesions noted Neuro General: patient alert, patient awake and patient oriented x3 Extrem General: no clubbing, cyanosis or edema Psych Mental Status: mental status grossly normal Affect: normal affect Attitude: cooperative Most Recent VS/Results Last Vital Signs Temp 36.5 C 07/06/21 04:10 Pulse 180 H 07/06/21 09:05 Resp 30 H 07/06/21 07:56 BP 78/63 L 07/06/21 07:56 Pulse Ox 92 07/06/21 07:56 Laboratory Results - last 24 hr 07/05/21 07/05/21 07/05/21 11:30 11:30 11:30 WBC RBC Hgb Hct MCV MCH MCHC RDW Plt Count MPV Immature Gran % Neutrophils % Lymphocytes % Monocytes % Eosinophils % Basophils % Nucleated RBC % Absolute Neutrophils Absolute Lymphocytes Absolute Monocytes Absolute Eosinophils Absolute Basophils PT INR D-Dimer Sodium Potassium Chloride Carbon Dioxide Anion Gap BUN Creatinine Estimated GFR/1.73 m2 Glucose Calcium Ferritin Total Bilirubin AST ALT Alkaline Phosphatase Troponin I < 0.05 C-Reactive Protein Total Protein Albumin Procalcitonin < 0.1 TSH Free T4 Urine Opiates Screen Urine Methadone Screen Ur Barbiturates Screen Ur Tricyclics Screen Ur Amphetamines Screen U Benzodiazepines Scrn Urine Cocaine Screen Ur THC Screen Patient ABO/Rh O Positive Antibody Screen NEGATIVE 07/05/21 07/05/21 07/05/21 17:17 22:30 22:30 WBC 4.87 RBC 4.19 L Hgb 12.5 L D Hct 38.0 L MCV 90.7 MCH 29.8 MCHC 32.9 RDW 16.2 H Plt Count 201 MPV 10.7 Immature Gran % Neutrophils % Lymphocytes % Monocytes % Eosinophils % Basophils % Nucleated RBC % Absolute Neutrophils Absolute Lymphocytes Absolute Monocytes Absolute Eosinophils Absolute Basophils PT INR D-Dimer Sodium 145 Potassium 4.1 Chloride 115 H Carbon Dioxide 20.6 L Anion Gap 9.4 BUN 59 H Creatinine 2.1 H D Estimated GFR/1.73 m2 31.11 Glucose 144 H Calcium 9.4 Ferritin Total Bilirubin AST ALT Alkaline Phosphatase Troponin I < 0.05 C-Reactive Protein Total Protein Albumin Procalcitonin TSH Free T4 Urine Opiates Screen Positive Urine Methadone Screen Negative Ur Barbiturates Screen Negative Ur Tricyclics Screen Negative Ur Amphetamines Screen Negative U Benzodiazepines Scrn Negative Urine Cocaine Screen Negative Ur THC Screen Negative Patient ABO/Rh Antibody Screen 07/05/21 07/06/21 07/06/21 23:15 05:55 07:30 WBC RBC Hgb Hct MCV MCH MCHC RDW Plt Count MPV Immature Gran % Neutrophils % Lymphocytes % Monocytes % Eosinophils % Basophils % Nucleated RBC % Absolute Neutrophils Absolute Lymphocytes Absolute Monocytes Absolute Eosinophils Absolute Basophils PT INR D-Dimer 743 H Sodium 146 H Potassium 4.0 Chloride 113 H Carbon Dioxide 21.0 Anion Gap 12.0 H BUN 58 H Creatinine 2.3 H Estimated GFR/1.73 m2 28.01 Glucose 111 H Calcium 9.5 Ferritin 119 Total Bilirubin 0.3 AST 21 ALT 11 L Alkaline Phosphatase 60 Troponin I Cancelled C-Reactive Protein 2.93 H Total Protein 6.3 L Albumin 2.6 L Procalcitonin TSH 0.33 L Free T4 1.43 Urine Opiates Screen Urine Methadone Screen Ur Barbiturates Screen Ur Tricyclics Screen Ur Amphetamines Screen U Benzodiazepines Scrn Urine Cocaine Screen Ur THC Screen Patient ABO/Rh Antibody Screen 07/06/21 07/06/21 07:30 07:30 WBC 6.87 D RBC 4.51 Hgb 13.5 Hct 41.0 MCV 90.9 MCH 29.9 MCHC 32.9 RDW 16.3 H Plt Count 221 MPV 10.7 Immature Gran % 0.9 Neutrophils % 76.5 Lymphocytes % 12.5 Monocytes % 10.0 Eosinophils % 0.0 Basophils % 0.1 Nucleated RBC % 0 Absolute Neutrophils 5.26 Absolute Lymphocytes 0.86 L Absolute Monocytes 0.69 Absolute Eosinophils 0.00 Absolute Basophils 0.01 PT 12.9 H INR 1.3 H D-Dimer 824 H Sodium Potassium Chloride Carbon Dioxide Anion Gap BUN Creatinine Estimated GFR/1.73 m2 Glucose Calcium Ferritin Total Bilirubin AST ALT Alkaline Phosphatase Troponin I C-Reactive Protein Total Protein Albumin Procalcitonin TSH Free T4 Urine Opiates Screen Urine Methadone Screen Ur Barbiturates Screen Ur Tricyclics Screen Ur Amphetamines Screen U Benzodiazepines Scrn Urine Cocaine Screen Ur THC Screen Patient ABO/Rh Antibody Screen Review of Systems All systems reviewed & are unremarkable except as noted in HPI and below Time spent with patient Time spent in Critical Care: 45 Time spent in Critical care included: Coordination of care, Chart review, Documenting critically ill care, Time at immediate bedside and Discussing critically ill care with other medical staff
[2021-07-06] MEDS: ESMOLOL 2,500 MG/250 ML BAG 210 MG IV (09:30)
[2021-07-06] MEDS: Omnipaque 350 MG/ML 50 ML BTL PO (09:52)
[2021-07-06] MEDS: Breeza Beverage 473 ML BTL PO ×2 (09:53→09:54)
[2021-07-06 10:14] LABS: HIV-1/2 Ag & Ab Screen Negative (Negative)
--- NOTE | 2021-07-06 10:28 | W.NUTRFU ---
Date of service: 07/06/21 Time of Service: 10:29 Nutrition Note NOTE: Assessment: Mr. Posey is admitted Covid positive and a history of ETOH. Getting Folic Acid and MVI. Ordered for a regular diet with regular consistency. Looking back at his weights over the past few years, his weight has been stable. He is currently 170 cm and 68.5 kg. BMI is 23.7 kg/m2 which is WNL. Nutrition Diagnosis: None at this time. Intervention: Regular diet. Monitoring and Evaluation: Will continue to monitor PO and weight. Will evaluate nutrition care plan ongoing and adjust as needed. Time Spent in Nutritional Counseling and Treatment: 0
[2021-07-06 10:38] LABS: HBs Antibody, Qual Negative (See Note); HBs Antibody, Quant <3.1 mIU/mL (See Note); Hepatitis B Core Antibody Negative (Negative); Hepatitis B surface Ag Negative (Negative); Hepatitis C Ab w Rflx HCV PCR Negative (Negative)
--- NOTE | 2021-07-06 10:53 | PDOC.CMPRO ---
- If Service Date Differs Date of service: 07/06/21 Time of Service: 10:53 Care Management Progress Note S/O: Liu was transferred to the ICU as he went into Afib with RVR, per MD. CT showed obstructing 7mm stone with moderate hydronephrosis per MD, and will be monitored, Dr. Camacho consulted. Dr. Pina has discussed this with Liu Do's daughter and agent. CM continues to follow. A: 75 year old male admitted to [facility] 07/05/21 for Covid, Pneumonia P: Liu will return home when ready per MD. He will resume home O2, follow up with his PCP and plan of care as prescribed. He will transport via private vehicle with family.
--- NOTE | 2021-07-06 11:25 | PHA.REVIEW ---
Pharmacy Admission Review - Admission Clinical Review (Last Updated 07/05/21 @ 09:34 by Michael oBwie) Hypotension (Acute) COVID-19 (Acute) Bacterial pneumonia (Acute) Acute kidney injury superimposed on chronic kidney disease (Acute) Dyspnea (Acute) No Known Allergies Allergy (Verified 07/29/16 02:35) Resuscitation Status Full Code Height 5 ft 7 in Weight 68.5 kg - Renal Dosing Renal Dosing: BUN 58 mg/dL (7-18) H 07/06/21 07:30 Creatinine 2.3 mg/dL (0.70-1.30) H 07/06/21 07:30 Medications needing adjustments: Reviewed List of meds needing interventions: ALL MEDS DOSED APPROPRIATELY - Anticoagulation Anticoagulation: Hgb 13.5 g/dL (13.5-17.5) 07/06/21 07:30 Hct 41.0 % (40.0-50.0) 07/06/21 07:30 Plt Count 221 10^3/uL (130-400) 07/06/21 07:30 INR 1.3 (0.9-1.1) H 07/06/21 07:30 Creatinine 2.3 mg/dL (0.70-1.30) H 07/06/21 07:30 DVT Prophylaxis: Reviewed Medications: Heparin Therapeutic Anticoagulation: N/A - Opiate Usage Evaluate Pain Scale/Pains Meds: Reviewed (HYDROCODONE PRN) Scheduled Bowel Reg ordered if on Opiates?: No (PRN ORDERS) - Relevant Labs Sodium 146 mmol/L (136-145) H 07/06/21 07:30 Potassium 4.0 mmol/L (3.5-5.1) 07/06/21 07:30 Chloride 113 mmol/L (98-107) H 07/06/21 07:30 C-Reactive Protein 2.93 mg/dL (0.0-0.3) H 07/06/21 07:30 Electrolytes, C-Reactive P, ESR: Reviewed - DM Control DM Control: Glucose 111 mg/dL (74-106) H 07/06/21 07:30 Insulin Dosing: N/A - Heart Failure/WV Heart Failure/WV: Troponin I Cancelled 07/06/21 05:55 EF%, ALIVIA's, B-Blockers, Diuretics: Reviewed - BP Control BP Control: Blood Pressure [Left Arm] 96/51 Blood Pressure [Left Arm] 92/49 Blood Pressure 78/63 Blood Pressure 85/48 Blood Pressure 82/51 Blood Pressure 88/23 Blood Pressure 79/43 Blood Pressure 80/47 Blood Pressure 90/37 Blood Pressure 87/41 Blood Pressure 82/53 Blood Pressure 100/80 Blood Pressure 106/66 Blood Pressure 106/66 Blood Pressure 126/85 Blood Pressure 102/53 Blood Pressure 84/72 Blood Pressure 64/41 Blood Pressure 85/45 Blood Pressure 92/49 Blood Pressure 100/54 Blood Pressure 129/95 Blood Pressure 105/48 Blood Pressure 98/65 Blood Pressure 99/47 Blood Pressure 97/51 Blood Pressure 95/54 Blood Pressure 96/51 Blood Pressure 98/51 Blood Pressure 89/65 Blood Pressure 89/49 Blood Pressure 85/50 Blood Pressure 82/37 Blood Pressure 92/52 If elevated: Reviewed List meds needing interventions: ESMOLOL DRIP AND PHENYLEPHRINE DRIP ACTIVE - Qtc Review If Elevated: Reviewed (QTC 407 ON ADMISSION) - IV to PO Switch IV Medications: Reviewed - Home Meds Home Med List reviewed: Intervened Relevent Home Meds Not ordered & why?: breo inhaler, furosemide (pt on phenylephrine gtt + esmolol gtt), meclizine, metoprolol (esmolol gtt active), zolpidem; reviewed external med history and updated med rec accordingly -- several additions and dose adjustments. - Current meds Current Medication Order Review: Intervened (updated phenylphrine order for nursing so dose/rate matched the pump)
--- NOTE | 2021-07-06 12:10 | W.PM.PROGNOT ---
Date of Service Date of service: 07/06/21 Time of Service: 12:10 Assessment and Plan Assessment and plan (1) Hypotension: Status: Acute Assessment and plan: Transferred to the ICU d/t hypotension (subsequently developed afib with RVR). Given IV fluids judiciously. Dr Yan initiated Levophed with improvement in BP. (2) Alcohol abuse: Status: Chronic Assessment and plan: CIWA monitoring. PRN Serax. (3) COPD with exacerbation: Status: Acute Assessment and plan: Atrovent QID. Also on Dexamethasone for COVID. (4) COVID-19: Status: Acute Assessment and plan: Continue Remdesivir and Dexamethasone. Pulmonary toilet; Acapella and IS. Vitamin D 2000mg daily. Pulmonary following. He is currently using his baseline 2L supplemental O2 per NC. (5) Atrial fibrillation with rapid ventricular response: Status: Acute Assessment and plan: Initially given diltiazem bolus. Now on Esmolol drip. K+ normal. Mg+ pending. (6) Acute kidney injury superimposed on chronic kidney disease: Status: Acute Assessment and plan: Creatinine: 3.1 > 2.1> 2.3 Gave IV fluids today (judiciously d/t benefit of not overhydrating a COVID pt). Monitor. Subjective Subjective Patient reports: no new complaints and afebrile; denies nausea, vomiting and shortness of breath Exam Narrative Exam Narrative: Cachectic appearing elderly gentleman unshaven with a tracheostomy. He appears to be in no acute respiratory distress not using accessory respiratory muscles. Neck is supple nontender no JVD normal carotid pulses Lungs with diffusely diminished breath sounds Heart is regular rate and rhythm Abdomen soft nontender there is some slight suprapubic distention Extremities with muscle wasting but no edema or cyanosis Neuro exam grossly intact no focal motor or sensory deficits no facial asymmetry speech unable to be assessed due to his tracheostomy. Const General: cooperative, no acute distress and ill appearing Nutritional Appearance: thin Chest Chest: normal inspection of the chest Resp Effort & Inspection: normal respiratory effort Auscultation: diminished lung sounds Cardio Rate: tachycardic Rhythm: abnormal rhythm irregularly irregular GI Inspection: non-distended Palpation: no hepatosplenomegaly and nontender Extrem General: normal to inspection, no pedal edema and no calf tenderness Psych Mental Status: mental status grossly normal Speech and Movement: speech and movement normal Affect: normal affect Attitude: cooperative Objective Last Vital Signs Temp 36.5 C 07/06/21 04:10 Pulse 101 H 07/06/21 11:40 Resp 19 07/06/21 11:40 BP 123/86 07/06/21 11:40 Pulse Ox 95 07/06/21 11:40 Laboratory Results - last 24 hr 07/05/21 07/05/21 07/05/21 11:30 11:30 11:30 WBC RBC Hgb Hct MCV MCH MCHC RDW Plt Count MPV Immature Gran % Neutrophils % Lymphocytes % Monocytes % Eosinophils % Basophils % Nucleated RBC % Absolute Neutrophils Absolute Lymphocytes Absolute Monocytes Absolute Eosinophils Absolute Basophils PT INR D-Dimer Sodium Potassium Chloride Carbon Dioxide Anion Gap BUN Creatinine Estimated GFR/1.73 m2 Glucose Calcium Ferritin Total Bilirubin AST ALT Alkaline Phosphatase Troponin I C-Reactive Protein Total Protein Albumin Procalcitonin < 0.1 TSH Free T4 Urine Opiates Screen Urine Methadone Screen Ur Barbiturates Screen Ur Tricyclics Screen Ur Amphetamines Screen U Benzodiazepines Scrn Urine Cocaine Screen Ur THC Screen HIV 1&2 Ag/Ab, 4th Gen Negative Patient ABO/Rh O Positive Antibody Screen NEGATIVE 07/05/21 07/05/21 07/05/21 17:17 22:30 22:30 WBC 4.87 RBC 4.19 L Hgb 12.5 L D Hct 38.0 L MCV 90.7 MCH 29.8 MCHC 32.9 RDW 16.2 H Plt Count 201 MPV 10.7 Immature Gran % Neutrophils % Lymphocytes % Monocytes % Eosinophils % Basophils % Nucleated RBC % Absolute Neutrophils Absolute Lymphocytes Absolute Monocytes Absolute Eosinophils Absolute Basophils PT INR D-Dimer Sodium 145 Potassium 4.1 Chloride 115 H Carbon Dioxide 20.6 L Anion Gap 9.4 BUN 59 H Creatinine 2.1 H D Estimated GFR/1.73 m2 31.11 Glucose 144 H Calcium 9.4 Ferritin Total Bilirubin AST ALT Alkaline Phosphatase Troponin I < 0.05 C-Reactive Protein Total Protein Albumin Procalcitonin TSH Free T4 Urine Opiates Screen Positive Urine Methadone Screen Negative Ur Barbiturates Screen Negative Ur Tricyclics Screen Negative Ur Amphetamines Screen Negative U Benzodiazepines Scrn Negative Urine Cocaine Screen Negative Ur THC Screen Negative HIV 1&2 Ag/Ab, 4th Gen Patient ABO/Rh Antibody Screen 07/05/21 07/06/21 07/06/21 23:15 05:55 07:30 WBC RBC Hgb Hct MCV MCH MCHC RDW Plt Count MPV Immature Gran % Neutrophils % Lymphocytes % Monocytes % Eosinophils % Basophils % Nucleated RBC % Absolute Neutrophils Absolute Lymphocytes Absolute Monocytes Absolute Eosinophils Absolute Basophils PT INR D-Dimer 743 H Sodium 146 H Potassium 4.0 Chloride 113 H Carbon Dioxide 21.0 Anion Gap 12.0 H BUN 58 H Creatinine 2.3 H Estimated GFR/1.73 m2 28.01 Glucose 111 H Calcium 9.5 Ferritin 119 Total Bilirubin 0.3 AST 21 ALT 11 L Alkaline Phosphatase 60 Troponin I Cancelled C-Reactive Protein 2.93 H Total Protein 6.3 L Albumin 2.6 L Procalcitonin TSH 0.33 L Free T4 1.43 Urine Opiates Screen Urine Methadone Screen Ur Barbiturates Screen Ur Tricyclics Screen Ur Amphetamines Screen U Benzodiazepines Scrn Urine Cocaine Screen Ur THC Screen HIV 1&2 Ag/Ab, 4th Gen Patient ABO/Rh Antibody Screen 07/06/21 07/06/21 07:30 07:30 WBC 6.87 D RBC 4.51 Hgb 13.5 Hct 41.0 MCV 90.9 MCH 29.9 MCHC 32.9 RDW 16.3 H Plt Count 221 MPV 10.7 Immature Gran % 0.9 Neutrophils % 76.5 Lymphocytes % 12.5 Monocytes % 10.0 Eosinophils % 0.0 Basophils % 0.1 Nucleated RBC % 0 Absolute Neutrophils 5.26 Absolute Lymphocytes 0.86 L Absolute Monocytes 0.69 Absolute Eosinophils 0.00 Absolute Basophils 0.01 PT 12.9 H INR 1.3 H D-Dimer 824 H Sodium Potassium Chloride Carbon Dioxide Anion Gap BUN Creatinine Estimated GFR/1.73 m2 Glucose Calcium Ferritin Total Bilirubin AST ALT Alkaline Phosphatase Troponin I C-Reactive Protein Total Protein Albumin Procalcitonin TSH Free T4 Urine Opiates Screen Urine Methadone Screen Ur Barbiturates Screen Ur Tricyclics Screen Ur Amphetamines Screen U Benzodiazepines Scrn Urine Cocaine Screen Ur THC Screen HIV 1&2 Ag/Ab, 4th Gen Patient ABO/Rh Antibody Screen
[2021-07-06] MEDS: Tamsulosin 0.4 MG CAPCR PO (13:11)
[2021-07-06] MEDS: Normal Saline 500 ML IV (13:19)
[2021-07-06 13:35] LABS: Magnesium 1.7 mg/dL (1.8-2.4)
[2021-07-06] MEDS: ESMOLOL 2,500 MG/250 ML BAG 82.2 MG IV ×3 (13:44→22:58)
[2021-07-06] MEDS: Ipratropium/Albuterol 4 GM 120 PUFF INH IH ×2 (14:29→18:43)
--- NOTE | 2021-07-06 15:38 | W.UROLOGYCON ---
Date of service: 07/06/21 Time of Service: 15:38 Assessment and Plan Assessment and plan (1) Left ureteral stone: Status: Acute Assessment and plan: If he develops any signs worrisome for urosepsis, we would need to place a left ureteral stent urgently. So far, he has not shown signs of sepsis and his pain has been managed with oral medications. Given his other comorbidities, he is certainly a poor surgical/anesthetic candidate. I would recommend initially treating him medically with tamsulosin and hydration as tolerated. If he is still symptomatic, we can consider a stent placement. A stent can be placed with sedation alone. A more definitive treatment of the stone would require ureteroscopy under a general anesthetic. He certainly is in no medical condition for a larger procedure at this time. History of Present Illness History of Present Illness Chief Complaint: Left ureteral stone Narrative: This is a 75-year-old gentleman recently admitted to the hospital with COVID-19 infection. The patient is a poor historian, but we do have some records from [facility]. The patient presented to [facility] with a 3-week history of shortness of breath and cough. He refused admission to [facility], but then drove himself to [facility] to be evaluated in our emergency room and be admitted to our facility. He has a history of COPD along with pneumonia. He had a chest xray at [facility] that showed lung infiltrates. He had cultures taken, but they are not available. The xray and cultures were not repeated at our facility. He had been doing reasonably well from the pulmonary standpoint during the hospitalization, but he developed atrial fibrillation and rapid ventricular response requiring transfer to the intensive care unit. He was noted to have some abdominal distension and abdominal pain. A point of care ultrasound raised the possibility of ascites being present. He apparently has a history of chronic renal insufficiency. His creatinine on presentation to [facility] was 3.5. A renal ultrasound was attempted here at our facility, but the patient refused to have a complete procedure and the exam was terminated. He did have a CT of the abdomen and pelvis which demonstrated left hydronephrosis with a proximal left ureteral stone. There are also additional nonobstructing stones in the lower pole of the left kidney. No stones are on the right. The patient does not give a history of prior kidney stones, but on his [facility] records, there is a description of hypercalcemia. He does have some left-sided abdominal discomfort but his discomfort is managed with oral pain medications. He has no fevers or chills. [facility] Medical History (Updated 07/06/21 @ 19:47 by Ana Rosa Yan MD) Alcohol abuse Chronic kidney disease Cirrhosis COPD with exacerbation Coronary artery disease Surgical History Status post tracheostomy Social History Smoking/Tobacco Use Status: Current every day Smoking risk assessment performed?: Yes Drug use: Never Do you feel safe at home: Yes Do you feel safe in your relationship?: Yes Exam Narrative Exam Narrative: He appears chronically ill. He has a tracheostomy His abdomen has left abdominal tenderness on palpation. His asher is draining clear urine I reviewed his CT scan on the PACS system. There is no hydronephrosis on the right, but there is left hydronephrosis with a left proximal ureteral stone. The stone measures approximately 7 mm. Additional nonobstructing stones in the kidney are found. His UA is pending Results Last Vital Signs Temp 36.5 C 07/06/21 04:10 Pulse 101 H 07/06/21 11:40 Resp 19 07/06/21 11:40 BP 123/86 07/06/21 11:40 Pulse Ox 95 07/06/21 11:40 Labs Result diagrams: 07/07/21 05:40 07/07/21 05:40 Labs: Laboratory Results - last 24 hr 07/05/21 07/05/21 07/05/21 11:30 11:30 17:17 WBC RBC Hgb Hct MCV MCH MCHC RDW Plt Count MPV Immature Gran % Neutrophils % Lymphocytes % Monocytes % Eosinophils % Basophils % Nucleated RBC % Absolute Neutrophils Absolute Lymphocytes Absolute Monocytes Absolute Eosinophils Absolute Basophils PT INR D-Dimer Sodium Potassium Chloride Carbon Dioxide Anion Gap BUN Creatinine Estimated GFR/1.73 m2 Glucose Calcium Magnesium Ferritin Total Bilirubin AST ALT Alkaline Phosphatase Troponin I C-Reactive Protein Total Protein Albumin TSH Free T4 Urine Opiates Screen Positive Urine Methadone Screen Negative Ur Barbiturates Screen Negative Ur Tricyclics Screen Negative Ur Amphetamines Screen Negative U Benzodiazepines Scrn Negative Urine Cocaine Screen Negative Ur THC Screen Negative Hep Bs Antigen Negative Hep Bs Antibody Negative Hep Bs Antibody, Quant <3.1 Hep B Core Total Ab Negative Hepatitis C Antibody Negative HIV 1&2 Ag/Ab, 4th Gen Negative 07/05/21 07/05/21 07/05/21 22:30 22:30 23:15 WBC 4.87 RBC 4.19 L Hgb 12.5 L D Hct 38.0 L MCV 90.7 MCH 29.8 MCHC 32.9 RDW 16.2 H Plt Count 201 MPV 10.7 Immature Gran % Neutrophils % Lymphocytes % Monocytes % Eosinophils % Basophils % Nucleated RBC % Absolute Neutrophils Absolute Lymphocytes Absolute Monocytes Absolute Eosinophils Absolute Basophils PT INR D-Dimer 743 H Sodium 145 Potassium 4.1 Chloride 115 H Carbon Dioxide 20.6 L Anion Gap 9.4 BUN 59 H Creatinine 2.1 H D Estimated GFR/1.73 m2 31.11 Glucose 144 H Calcium 9.4 Magnesium Ferritin Total Bilirubin AST ALT Alkaline Phosphatase Troponin I < 0.05 C-Reactive Protein Total Protein Albumin TSH Free T4 Urine Opiates Screen Urine Methadone Screen Ur Barbiturates Screen Ur Tricyclics Screen Ur Amphetamines Screen U Benzodiazepines Scrn Urine Cocaine Screen Ur THC Screen Hep Bs Antigen Hep Bs Antibody Hep Bs Antibody, Quant Hep B Core Total Ab Hepatitis C Antibody HIV 1&2 Ag/Ab, 4th Gen 07/06/21 07/06/21 07/06/21 05:55 07:30 07:30 WBC 6.87 D RBC 4.51 Hgb 13.5 Hct 41.0 MCV 90.9 MCH 29.9 MCHC 32.9 RDW 16.3 H Plt Count 221 MPV 10.7 Immature Gran % 0.9 Neutrophils % 76.5 Lymphocytes % 12.5 Monocytes % 10.0 Eosinophils % 0.0 Basophils % 0.1 Nucleated RBC % 0 Absolute Neutrophils 5.26 Absolute Lymphocytes 0.86 L Absolute Monocytes 0.69 Absolute Eosinophils 0.00 Absolute Basophils 0.01 PT INR D-Dimer Sodium 146 H Potassium 4.0 Chloride 113 H Carbon Dioxide 21.0 Anion Gap 12.0 H BUN 58 H Creatinine 2.3 H Estimated GFR/1.73 m2 28.01 Glucose 111 H Calcium 9.5 Magnesium 1.7 L Ferritin 119 Total Bilirubin 0.3 AST 21 ALT 11 L Alkaline Phosphatase 60 Troponin I Cancelled C-Reactive Protein 2.93 H Total Protein 6.3 L Albumin 2.6 L TSH 0.33 L Free T4 1.43 Urine Opiates Screen Urine Methadone Screen Ur Barbiturates Screen Ur Tricyclics Screen Ur Amphetamines Screen U Benzodiazepines Scrn Urine Cocaine Screen Ur THC Screen Hep Bs Antigen Hep Bs Antibody Hep Bs Antibody, Quant Hep B Core Total Ab Hepatitis C Antibody HIV 1&2 Ag/Ab, 4th Gen 07/06/21 07:30 WBC RBC Hgb Hct MCV MCH MCHC RDW Plt Count MPV Immature Gran % Neutrophils % Lymphocytes % Monocytes % Eosinophils % Basophils % Nucleated RBC % Absolute Neutrophils Absolute Lymphocytes Absolute Monocytes Absolute Eosinophils Absolute Basophils PT 12.9 H INR 1.3 H D-Dimer 824 H Sodium Potassium Chloride Carbon Dioxide Anion Gap BUN Creatinine Estimated GFR/1.73 m2 Glucose Calcium Magnesium Ferritin Total Bilirubin AST ALT Alkaline Phosphatase Troponin I C-Reactive Protein Total Protein Albumin TSH Free T4 Urine Opiates Screen Urine Methadone Screen Ur Barbiturates Screen Ur Tricyclics Screen Ur Amphetamines Screen U Benzodiazepines Scrn Urine Cocaine Screen Ur THC Screen Hep Bs Antigen Hep Bs Antibody Hep Bs Antibody, Quant Hep B Core Total Ab Hepatitis C Antibody HIV 1&2 Ag/Ab, 4th Gen
[2021-07-06] MEDS: Magnesium Oxide 400 MG TAB PO (18:43)
[2021-07-06] MEDS: Budesonide/Formoterol 80/4.5 6.9 GM 60 PUFF INH IH (21:27)
[2021-07-07] VITALS (152 sets, daily range): BP systolic 65–131; BP diastolic 35–96; PULSE 55–157; RESP 13–36; TEMP 35.4–36.8; O2SAT 88–95; BMI 23.6
[2021-07-07] MEDS: dilTIAZem 25 MG/5 ML VIAL 10 MG IVP (00:03)
[2021-07-07] MEDS: dilTIAZem 125 MG in Normal Saline 100 ML IV (00:26)
[2021-07-07] MEDS: Normal Saline Flush 10 ML SYR IVP ×2 (01:22→01:24)
--- NOTE | 2021-07-07 01:30 | RT.EKG_ITS ---
APPROVED REPORT Exam: Resting ECG Reason for Exam: tachycardia, hypotension Patient Location: I HR:124 bpm ECG Measurements Heart Rate 124 AXIS OR [id number] P [id number] QRSd 82 QRS 63 QT 226 T -58 QTc 326 Conclusion Atrial fibrillation...? atrial activity Ventricular premature complex...V complex w/ short R-R interval Low voltage, extremity leads...all extremity leads <0.5mV
[2021-07-07] MEDS: DOXYCYCLINE 100 MG in Normal Saline 100 ML IVPB (02:12)
[2021-07-07 02:18] LABS: Abs Immature Grans 0.18 10^3/uL (0.0-0.06); Absolute Basophil Count 0.03 10^3/uL (0.0-0.2); Absolute Lymphocyte Count 1.51 10^3/uL (1.2-3.4); Absolute Neutrophil Count 14.23 10^3/uL (1.2-6.7); Basophils % 0.2; HCT 42.7 % (40.0-50.0); HGB 13.7 g/dL (13.5-17.5); Immature Grans % 1.1; Lymphocytes % 8.9; MCH 29.7 pg (27.0-33.0); MCHC 32.1 % (32.0-36.0); MCV 92.4 fL (80-95); MPV 10.7 fL (8.0-11.0); Monocytes % 5.7; Neutrophils % 84.1; Nucleated RBC 0 %; Platelet Count 322 10^3/uL (130-400); RBC 4.62 10^6/uL (4.36-5.78); RDW 16.8 % (11.8-14.1); RDW-SD 57.6 fL; WBC 16.92 10^3/uL (4.4-10.8)
[2021-07-07 02:19] LABS: Absolute Monocyte Count 0.96 10^3/uL (0.1-0.8)
[2021-07-07 02:21] LABS: Lactate 2.4 mmol/L (0.6-1.4)
[2021-07-07] MEDS: dilTIAZem 25 MG/5 ML VIAL 15 MG IVP (02:25)
[2021-07-07 02:34] LABS: Anion Gap 12.3 mmol/L (3-11); BUN 54 mg/dL (7-18); CO2 19.7 mmol/L (21.0-32.0); CREATININE 2.4 mg/dL (0.70-1.30); Calcium 8.6 mg/dL (8.5-10.1); Chloride 115 mmol/L (98-107); Estimated GFR 26.67 (mL/min/1.73m2); Glucose 117 mg/dL (74-106); Potassium 4.6 mmol/L (3.5-5.1); Sodium 147 mmol/L (136-145)
[2021-07-07] MEDS: Digoxin 0.5 MG/2 ML AMP 0.25 MG IVP (03:31)
[2021-07-07 03:41] LABS: Clarity Clear (Clear)
[2021-07-07 03:42] LABS: Bilirubin Negative (Negative); Blood Moderate (Negative); Glucose Negative (Negative); Ketones Negative (Negative); Leukocyte Esterase Negative (Negative); Nitrite Positive (Negative); Specific Gravity 1.025 (1.005-1.025); Urobilinogen 0.2 EU/dL (Up TO 0.2); pH 5.5 (5-8)
[2021-07-07 03:43] LABS: Bacteria Few HPF (Negative); C & S Indicated? C&S Done As Ordered; Casts 0-2 Hyaline LPF (Negative); Crystals Rare Calcium Oxalate HPF (Negative); Epithelial Cells Rare HPF (Negative); Mucus Negative (Negative); WBC 0-2 HPF (0-5)
[2021-07-07] MEDS: HYDROcodone 5/Acetaminophen 325 TAB PO (03:45)
[2021-07-07 04:13] LABS: NT-proBNP 11574 pg/mL (<300)
[2021-07-07 04:15] LABS: Troponin I 0.14 ng/mL (<0.06)
[2021-07-07] MEDS: dilTIAZem 25 MG/5 ML VIAL 5 MG IVP (05:17)
[2021-07-07 05:58] LABS: Abs Immature Grans 0.14 10^3/uL (0.0-0.06); Absolute Basophil Count 0.02 10^3/uL (0.0-0.2); Absolute Neutrophil Count 13.83 10^3/uL (1.2-6.7); Basophils % 0.1; HGB 12.7 g/dL (13.5-17.5); Immature Grans % 0.8; Lymphocytes % 6.9; MCH 29.5 pg (27.0-33.0); MCHC 31.8 % (32.0-36.0); MCV 92.8 fL (80-95); MPV 10.5 fL (8.0-11.0); Monocytes % 8.3; Neutrophils % 83.9; Nucleated RBC 0 %; Platelet Count 285 10^3/uL (130-400); RBC 4.31 10^6/uL (4.36-5.78); RDW 16.7 % (11.8-14.1); RDW-SD 57.4 fL; WBC 16.48 10^3/uL (4.4-10.8)
[2021-07-07 06:25] LABS: Absolute Lymphocyte Count 1.14 10^3/uL (1.2-3.4); Absolute Monocyte Count 1.37 10^3/uL (0.1-0.8)
[2021-07-07 06:27] LABS: Albumin 2.3 g/dL (3.4-5.0); BUN 51 mg/dL (7-18); Bilirubin, Total 0.2 mg/dL (0.2-1.0); CREATININE 2.5 mg/dL (0.70-1.30); Calcium 8.1 mg/dL (8.5-10.1); Estimated GFR 25.44 (mL/min/1.73m2); Glucose 146 mg/dL (74-106); Total Protein 5.7 g/dL (6.4-8.2)
[2021-07-07 06:28] LABS: ALT 11 U/L (16-63); AST 20 U/L (15-37); Alkaline Phosphatase 53 U/L (46-116); Anion Gap 12.9 mmol/L (3-11); C-Reactive Protein 1.85 mg/dL (0.0-0.3); CO2 18.1 mmol/L (21.0-32.0); Chloride 115 mmol/L (98-107); Magnesium 1.6 mg/dL (1.8-2.4); Potassium 4.3 mmol/L (3.5-5.1); Sodium 146 mmol/L (136-145)
[2021-07-07 06:37] LABS: INR 1.3 (0.9-1.1); PTT Activated 31.5 sec (21.0-27.5); Prothrombin Time 13.4 sec (9.3-11.0)
[2021-07-07 06:41] LABS: D-Dimer 679 ng/mlFEU (<500)
[2021-07-07 06:54] LABS: Ferritin 151 ng/mL (26-388)
[2021-07-07] MEDS: dilTIAZem 125 MG in Normal Saline 100 ML 15 MG IV (06:54)
--- NOTE | 2021-07-07 07:45 | RT.EKG_ITS ---
APPROVED REPORT Exam: Resting ECG Reason for Exam: Afib Patient Location: I HR:126 bpm ECG Measurements Heart Rate 126 AXIS NV [id number] P [id number] QRSd 112 QRS 56 QT [id number] T [id number] QTc 0 Conclusion Gender not entered, assumed to be male for purpose of ECG interpretation Atrial fibrillation...? atrial activity Low voltage, extremity leads...all extremity leads <0.5mV
--- NOTE | 2021-07-07 07:47 | PGE_ITS ---
Date of Service Date of service: 07/07/21 Time of Service: 07:47 Assessment and Plan Assessment and plan (1) Left ureteral stone: Status: Acute Assessment and plan: He is acting more septic, but it is not clear if this is related to his stone, pneumonia, or another source. I think it is reasonable to place a ureteral stent urgently to see if he improves at all. He will be at high risk given his medical condition. I explained all this to the patient and he is agreeable to the procedure. Ultimately, he will need a larger procedure under general anesthesia to definitively treat his stone. He would need to be in much better shape before such a procedure can be undertaken. Subjective Subjective Interval history since last seen: Pt remains afebrile, but WBC increased and lactate increased. Blood and urine cultures are pending. His initial UA was no overly suspicious for a UTI, but he could potentially have an infection trapped up above his left ureteral stone. Exam Narrative Exam Narrative: He appears chronically ill His abdomen is distended with tenderness in left upper quadrant, but no peritoneal signs He is awake and alert Objective Last Vital Signs Temp 35.8 C L 07/07/21 03:25 Pulse 118 H 07/07/21 06:59 Resp 24 07/07/21 06:01 BP 100/65 07/07/21 06:01 Pulse Ox 92 07/07/21 06:01 Laboratory Results - last 24 hr 07/05/21 07/05/21 07/06/21 11:30 11:30 07:30 WBC RBC Hgb Hct MCV MCH MCHC RDW Plt Count MPV Immature Gran % Neutrophils % Lymphocytes % Monocytes % Eosinophils % Basophils % Nucleated RBC % Absolute Neutrophils Absolute Lymphocytes Absolute Monocytes Absolute Eosinophils Absolute Basophils PT INR APTT D-Dimer VBG Lactate Sodium 146 H Potassium 4.0 Chloride 113 H Carbon Dioxide 21.0 Anion Gap 12.0 H BUN 58 H Creatinine 2.3 H Estimated GFR/1.73 m2 28.01 Glucose 111 H Calcium 9.5 Magnesium 1.7 L Ferritin 119 Total Bilirubin 0.3 AST 21 ALT 11 L Alkaline Phosphatase 60 Troponin I C-Reactive Protein 2.93 H NT-Pro-B Natriuret Pep Total Protein 6.3 L Albumin 2.6 L TSH 0.33 L Free T4 1.43 Urine Color Urine Clarity Urine pH Ur Specific [place] Urine Protein Urine Ketones Urine Blood Urine Nitrite Urine Bilirubin Urine Urobilinogen Ur Leukocyte Esterase Urine RBC Urine WBC Ur Epithelial Cells Urine Crystals Urine Bacteria Urine Casts Urine Mucus Ur Culture Indicated? Urine Glucose Hep Bs Antigen Negative Hep Bs Antibody Negative Hep Bs Antibody, Quant <3.1 Hep B Core Total Ab Negative Hepatitis C Antibody Negative HIV 1&2 Ag/Ab, 4th Gen Negative 07/06/21 07/06/21 07/07/21 07:30 07:30 02:05 WBC 6.87 D RBC 4.51 Hgb 13.5 Hct 41.0 MCV 90.9 MCH 29.9 MCHC 32.9 RDW 16.3 H Plt Count 221 MPV 10.7 Immature Gran % 0.9 Neutrophils % 76.5 Lymphocytes % 12.5 Monocytes % 10.0 Eosinophils % 0.0 Basophils % 0.1 Nucleated RBC % 0 Absolute Neutrophils 5.26 Absolute Lymphocytes 0.86 L Absolute Monocytes 0.69 Absolute Eosinophils 0.00 Absolute Basophils 0.01 PT 12.9 H INR 1.3 H APTT D-Dimer 824 H VBG Lactate Sodium Potassium Chloride Carbon Dioxide Anion Gap BUN Creatinine Estimated GFR/1.73 m2 Glucose Calcium Magnesium Ferritin Total Bilirubin AST ALT Alkaline Phosphatase Troponin I C-Reactive Protein NT-Pro-B Natriuret Pep Total Protein Albumin TSH Free T4 Urine Color Yellow Urine Clarity Clear Urine pH 5.5 Ur Specific [place] 1.025 Urine Protein Trace H Urine Ketones Negative Urine Blood Moderate H Urine Nitrite Positive H Urine Bilirubin Negative Urine Urobilinogen 0.2 Ur Leukocyte Esterase Negative Urine RBC 10-20 H Urine WBC 0-2 Ur Epithelial Cells Rare Urine Crystals Rare Calcium Oxalate Urine Bacteria Few Urine Casts 0-2 Hyaline Urine Mucus Negative Ur Culture Indicated? C&S Done As Ordered Urine Glucose Negative Hep Bs Antigen Hep Bs Antibody Hep Bs Antibody, Quant Hep B Core Total Ab Hepatitis C Antibody HIV 1&2 Ag/Ab, 4th Gen 07/07/21 07/07/21 07/07/21 02:07 02:07 02:07 WBC 16.92 H D RBC 4.62 Hgb 13.7 Hct 42.7 MCV 92.4 MCH 29.7 MCHC 32.1 RDW 16.8 H Plt Count 322 D MPV 10.7 Immature Gran % 1.1 Neutrophils % 84.1 Lymphocytes % 8.9 Monocytes % 5.7 Eosinophils % 0.0 Basophils % 0.2 Nucleated RBC % 0 Absolute Neutrophils 14.23 H Absolute Lymphocytes 1.51 Absolute Monocytes 0.96 H Absolute Eosinophils 0.00 Absolute Basophils 0.03 PT INR APTT D-Dimer VBG Lactate Sodium 147 H Potassium 4.6 Chloride 115 H Carbon Dioxide 19.7 L Anion Gap 12.3 H BUN 54 H Creatinine 2.4 H Estimated GFR/1.73 m2 26.67 Glucose 117 H Calcium 8.6 Magnesium Ferritin Total Bilirubin AST ALT Alkaline Phosphatase Troponin I 0.14 H* C-Reactive Protein NT-Pro-B Natriuret Pep 81078 H Total Protein Albumin TSH Free T4 Urine Color Urine Clarity Urine pH Ur Specific [place] Urine Protein Urine Ketones Urine Blood Urine Nitrite Urine Bilirubin Urine Urobilinogen Ur Leukocyte Esterase Urine RBC Urine WBC Ur Epithelial Cells Urine Crystals Urine Bacteria Urine Casts Urine Mucus Ur Culture Indicated? Urine Glucose Hep Bs Antigen Hep Bs Antibody Hep Bs Antibody, Quant Hep B Core Total Ab Hepatitis C Antibody HIV 1&2 Ag/Ab, 4th Gen 07/07/21 07/07/21 07/07/21 02:07 05:40 05:40 WBC 16.48 H RBC 4.31 L Hgb 12.7 L Hct 40.0 MCV 92.8 MCH 29.5 MCHC 31.8 L RDW 16.7 H Plt Count 285 MPV 10.5 Immature Gran % 0.8 Neutrophils % 83.9 Lymphocytes % 6.9 Monocytes % 8.3 Eosinophils % 0.0 Basophils % 0.1 Nucleated RBC % 0 Absolute Neutrophils 13.83 H Absolute Lymphocytes 1.14 L Absolute Monocytes 1.37 H Absolute Eosinophils 0.00 Absolute Basophils 0.02 PT INR APTT D-Dimer VBG Lactate 2.4 H* Sodium 146 H Potassium 4.3 Chloride 115 H Carbon Dioxide 18.1 L Anion Gap 12.9 H BUN 51 H Creatinine 2.5 H Estimated GFR/1.73 m2 25.44 Glucose 146 H Calcium 8.1 L Magnesium 1.6 L Ferritin 151 Total Bilirubin 0.2 AST 20 ALT 11 L Alkaline Phosphatase 53 Troponin I C-Reactive Protein 1.85 H NT-Pro-B Natriuret Pep Total Protein 5.7 L Albumin 2.3 L TSH Free T4 Urine Color Urine Clarity Urine pH Ur Specific [place] Urine Protein Urine Ketones Urine Blood Urine Nitrite Urine Bilirubin Urine Urobilinogen Ur Leukocyte Esterase Urine RBC Urine WBC Ur Epithelial Cells Urine Crystals Urine Bacteria Urine Casts Urine Mucus Ur Culture Indicated? Urine Glucose Hep Bs Antigen Hep Bs Antibody Hep Bs Antibody, Quant Hep B Core Total Ab Hepatitis C Antibody HIV 1&2 Ag/Ab, 4th Gen 07/07/21 07/07/21 05:40 05:40 WBC RBC Hgb Hct MCV MCH MCHC RDW Plt Count MPV Immature Gran % Neutrophils % Lymphocytes % Monocytes % Eosinophils % Basophils % Nucleated RBC % Absolute Neutrophils Absolute Lymphocytes Absolute Monocytes Absolute Eosinophils Absolute Basophils PT 13.4 H INR 1.3 H APTT 31.5 H D-Dimer 679 H VBG Lactate Sodium Potassium Chloride Carbon Dioxide Anion Gap BUN Creatinine Estimated GFR/1.73 m2 Glucose Calcium Magnesium Ferritin Total Bilirubin AST ALT Alkaline Phosphatase Troponin I C-Reactive Protein NT-Pro-B Natriuret Pep Total Protein Albumin TSH Free T4 Urine Color Urine Clarity Urine pH Ur Specific [place] Urine Protein Urine Ketones Urine Blood Urine Nitrite Urine Bilirubin Urine Urobilinogen Ur Leukocyte Esterase Urine RBC Urine WBC Ur Epithelial Cells Urine Crystals Urine Bacteria Urine Casts Urine Mucus Ur Culture Indicated? Urine Glucose Hep Bs Antigen Hep Bs Antibody Hep Bs Antibody, Quant Hep B Core Total Ab Hepatitis C Antibody HIV 1&2 Ag/Ab, 4th Gen
--- NOTE | 2021-07-07 08:00 | DI.RAD_ITS ---
Exam(s) XR PORTABLE CHEST AP EXAM: XR PORTABLE CHEST AP CLINICAL HISTORY: chest pain TECHNIQUE: 2D digital imaging was performed of the chest. One image was obtained. An AP view was ob tained. COMPARISON: CR PORTABLE CHEST ONE VIEW from 07/30/2016 FINDINGS: MEDIASTINUM: Normal. HEART: Normal. PULMONARY VASCULATURE: Normal. Atherosclerosis. LUNGS: There is a patchy infiltrate in the right lung base. Left basilar atelectasis or scarring. PLEURAL SPACE: There is blunting of the left costophrenic angle and a small left pleural effusion can not be excluded. No right pleural effusion is seen. No pneumothorax is present. BONE:Within normal limits for the patient's age. OTHER FINDINGS:The tracheostomy tube is in good position. IMPRESSION: Right basilar infiltrate which may represent a small pneumonia. DATA REPOSITORY: RADIATION DOSE DELIVERED:
--- NOTE | 2021-07-07 08:07 | NUR.NOTE ---
Dr. Camacho to take patient to surgery for ureteral stent placement.Nursing Note:
--- NOTE | 2021-07-07 08:11 | NUR.NOTE ---
Respiratory therapist performs EKG.Nursing Note:
[2021-07-07] MEDS: Umeclidinium 7 CAP INHALER 1 CAP IH (08:17)
[2021-07-07] MEDS: Dexamethasone 4 MG/ML VIAL 6 MG IVP (08:18)
--- NOTE | 2021-07-07 08:21 | DI.VRAD_ITS ---
PROCEDURE INFORMATION: Exam: XR Chest Exam date and time: 07/07/2021 5:00 AM Age: 75 years old Clinical indication: Other: Chest pain TECHNIQUE: Imaging protocol: XR of the chest. Views: 1 view. COMPARISON: CR PORTABLE CHEST ONE VIEW 07/30/2016 11:04 AM FINDINGS: A tracheostomy is present. There are patchy opacities at the right base. There is left basilar atelectasis/infiltrate. There is a possible small left pleural effusion. No pneumothorax. Normal pulmonary vascularity. IMPRESSION: 1. Patchy opacities at the right base. 2. Left basilar atelectasis/infiltrate. 3. Possible left pleural effusion. Dictated and Authenticated by: Mina Zimmer MD. Ordering:.[facility] Azeb Rodriguez MD
--- NOTE | 2021-07-07 08:23 | W.PM.PROGNOT ---
Date of Service Date of service: 07/07/21 Time of Service: 08:23 Assessment and Plan Assessment and plan (1) Hypotension: Status: Acute Assessment and plan: patient has had hypotension off/on since admission. Initially believed to be d/t dehydration/prerenal azotemia. Patient initially had iv fluids given through the ER but iv fluids were stopped shortly after admission d/t his COVID pneumonia. However his hypotension worsened yesterday around 6 am. It is unclear as to whether or not this was d/t his rapid afib however his rapid afib developed shortly betweem 6:21 am (HR 51 bmp) and 6:50 am when his HR went up to 178 bpm. Patient was given bolus of diltiazem but when his BP dropped further he was put on esomolol drip but this did not control his HR last night and was bolused w/ diltiazem couple times and was started on diltiazem drip. His HR is now reasonable in the 110's to 120 but could be better controlled. I did give him a dose of digoxin last night but given his CKD I am going to avoid this. He remains on phenylephrine drip per pulmonary service however he is going through a lot of volume d/t the concentration of the phenylephrine drip (was 10 mg/500 mL; he was receiving 287 mL/hr). I have spoken w/ pharmacy and they are going to concentrate this to 100 mg/500 mL (i.e. 20 microgram/mL). He is currently requiring 1.4 mcg/kg/minute (28.7 mL/hr). I have added vasopressin to his regimen. Patient was started back on antibiotics last night including Rocephin 2 gm/24h and doxycycline 100 mg IV Q12h. However, given his ongoing hypotension, possibly sepsis from urosepsis from obstructive uropathy, I am going to expand his coverage pending results of his blood and urine cultures. I will add Meropenem and Vancomycin pending his cultures. Critical care time spent evaluating the patient, reviewing studies, discusion w/ nursing and Dr. Camacho was 1 hour Qualifiers: Hypotension type: other hypotension type Qualified Code(s): I95.89 - Other hypotension (2) Acute unilateral obstructive uropathy: Status: Acute Assessment and plan: Patient underwent cystoscopy and ureteral stent placement this morning by Dr. Camacho. Patient will need to follow up closely with him upon discharge for further treatment of his nephrolithiasis. (3) Left ureteral stone: Status: Acute Assessment and plan: as above (4) Acute kidney injury superimposed on chronic kidney disease: Status: Acute Assessment and plan: acute renal failure d/t multiple factors including ureteral obstruction, and patient presented on admission w/ dehydration. (5) Volume overload: Status: Acute Assessment and plan: patient has been receiving a lot of iv fluids in attempt to resuscitate him. IV fluids have since been stopped. I am going to put him on lasix to try to diurese him. Qualifiers: Hypervolemia type: other Qualified Code(s): E87.79 - Other fluid overload (6) Atrial fibrillation with rapid ventricular response: Status: Acute Assessment and plan: rate control w/ diltiazem drip, will add oral diltiazem as well. Echo showed normal LV funtion. Patient heparinized but this was put on hold for his cystourteroscopy. will resume post operatively. If unable to control HR w/ diltiazem alone then may need to add oral BB. (7) COPD (chronic obstructive pulmonary disease): Status: Chronic Assessment and plan: continue bronchodilators/ ICS: ( Symbicort, Incruse Ellipta, prn xopenex), supplemental oxygen, pulmonary toiletry. systemic corticosteroids for his COVID-19 pneumonia Qualifiers: COPD type: chronic bronchitis Chronic bronchitis type: unspecified Qualified Code(s): J42 - Unspecified chronic bronchitis (8) COVID-19: Status: Acute Assessment and plan: cont. Remdesivir (day 3 of 4 of 100 mg dose; had 200 mg on 07/05; continue decadron 6 mg IVP daily. Rocephin and doxycycline added d/t possible concomittant bacterial pneumonia and urosepsis. Will dc doxycycline as he is on azithromycin. will change his Rocephin to Meropenem and add Vancomycin at renal adjusted doses pending urine and blood cultures. If both negative then will down grade his antibiotics. Subjective Subjective Interval history since last seen: Patient complaining of increased abdominal pain in LUQ and has abdominal distension. He has asher in place and voided 500 mL overnight but his overall fluid balance is positive by 4 liters yesterday and by 2300 since last night. his oxygen requirements have increased (FIO2 5 lpm per trach mask) and he is feeling dyspneic. I spoke w/ Dr. Camacho and we both feel that his hemodynamic instability is probably d/t his obstructive uropathy and at this point he should have stent placed to alleviate the obstruction. I obtained blood cultures last night and resumed antibiotics including Rocephin and doxycycline (for coverage of pneumonia as well). However, given his probable urosepsis, I am going to expand his coverage coverage w/ Vancomycin and Zosyn until his urine and blood cultures return. He also is volume overloaded and has BNP of 11,500 and has diffuse bilateral B lines althoug some of this could be from his COVID pneumonia but he now has pleural effusion on the left and he has more consolidation in the bases of his lungs particular on the right per POCUS. POCUS echo however demonstrates normal LV function, RV was not well visualized but from what I could see it does not appear dilated and function overall appeared normal. I could not get a subcostal view of his heart or IVC d/t abdominal distension and a lot of gas interfering. His abdominal POCUS demonstrates moderately severe hydronephrosis on the left and he has some peritoneal fluid in the splenorenal space. Exam Narrative Exam Narrative: Elderly white male who has a tracheostomy but when he plugs it he can talk to me. He is alert and oriented Lungs: diffusely diminished w/ bilateral basilar rales; no wheezing or rhonchi Heart: irregularly irregular and slightly tachycardic; no murmur Abdomen: distended, diffusely tender; active bowel sounds; guarding and particularly tender over LUQ Extremities: no edema Objective Last Vital Signs Temp 35.8 C L 07/07/21 03:25 Pulse 118 H 07/07/21 06:59 Resp 24 07/07/21 06:01 BP 100/65 07/07/21 06:01 Pulse Ox 92 07/07/21 06:01 Laboratory Results - last 24 hr 07/05/21 07/05/21 07/06/21 11:30 11:30 07:30 WBC RBC Hgb Hct MCV MCH MCHC RDW Plt Count MPV Immature Gran % Neutrophils % Lymphocytes % Monocytes % Eosinophils % Basophils % Nucleated RBC % Absolute Neutrophils Absolute Lymphocytes Absolute Monocytes Absolute Eosinophils Absolute Basophils PT INR APTT D-Dimer VBG Lactate Sodium 146 H Potassium 4.0 Chloride 113 H Carbon Dioxide 21.0 Anion Gap 12.0 H BUN 58 H Creatinine 2.3 H Estimated GFR/1.73 m2 28.01 Glucose 111 H Calcium 9.5 Magnesium 1.7 L Ferritin 119 Total Bilirubin 0.3 AST 21 ALT 11 L Alkaline Phosphatase 60 Troponin I C-Reactive Protein 2.93 H NT-Pro-B Natriuret Pep Total Protein 6.3 L Albumin 2.6 L TSH 0.33 L Free T4 1.43 Urine Color Urine Clarity Urine pH Ur Specific [place] Urine Protein Urine Ketones Urine Blood Urine Nitrite Urine Bilirubin Urine Urobilinogen Ur Leukocyte Esterase Urine RBC Urine WBC Ur Epithelial Cells Urine Crystals Urine Bacteria Urine Casts Urine Mucus Ur Culture Indicated? Urine Glucose Hep Bs Antigen Negative Hep Bs Antibody Negative Hep Bs Antibody, Quant <3.1 Hep B Core Total Ab Negative Hepatitis C Antibody Negative HIV 1&2 Ag/Ab, 4th Gen Negative 07/06/21 07/07/21 07/07/21 07:30 02:05 02:07 WBC RBC Hgb Hct MCV MCH MCHC RDW Plt Count MPV Immature Gran % Neutrophils % Lymphocytes % Monocytes % Eosinophils % Basophils % Nucleated RBC % Absolute Neutrophils Absolute Lymphocytes Absolute Monocytes Absolute Eosinophils Absolute Basophils PT 12.9 H INR 1.3 H APTT D-Dimer 824 H VBG Lactate Sodium 147 H Potassium 4.6 Chloride 115 H Carbon Dioxide 19.7 L Anion Gap 12.3 H BUN 54 H Creatinine 2.4 H Estimated GFR/1.73 m2 26.67 Glucose 117 H Calcium 8.6 Magnesium Ferritin Total Bilirubin AST ALT Alkaline Phosphatase Troponin I C-Reactive Protein NT-Pro-B Natriuret Pep Total Protein Albumin TSH Free T4 Urine Color Yellow Urine Clarity Clear Urine pH 5.5 Ur Specific [place] 1.025 Urine Protein Trace H Urine Ketones Negative Urine Blood Moderate H Urine Nitrite Positive H Urine Bilirubin Negative Urine Urobilinogen 0.2 Ur Leukocyte Esterase Negative Urine RBC 10-20 H Urine WBC 0-2 Ur Epithelial Cells Rare Urine Crystals Rare Calcium Oxalate Urine Bacteria Few Urine Casts 0-2 Hyaline Urine Mucus Negative Ur Culture Indicated? C&S Done As Ordered Urine Glucose Negative Hep Bs Antigen Hep Bs Antibody Hep Bs Antibody, Quant Hep B Core Total Ab Hepatitis C Antibody HIV 1&2 Ag/Ab, 4th Gen 07/07/21 07/07/21 07/07/21 02:07 02:07 02:07 WBC 16.92 H D RBC 4.62 Hgb 13.7 Hct 42.7 MCV 92.4 MCH 29.7 MCHC 32.1 RDW 16.8 H Plt Count 322 D MPV 10.7 Immature Gran % 1.1 Neutrophils % 84.1 Lymphocytes % 8.9 Monocytes % 5.7 Eosinophils % 0.0 Basophils % 0.2 Nucleated RBC % 0 Absolute Neutrophils 14.23 H Absolute Lymphocytes 1.51 Absolute Monocytes 0.96 H Absolute Eosinophils 0.00 Absolute Basophils 0.03 PT INR APTT D-Dimer VBG Lactate 2.4 H* Sodium Potassium Chloride Carbon Dioxide Anion Gap BUN Creatinine Estimated GFR/1.73 m2 Glucose Calcium Magnesium Ferritin Total Bilirubin AST ALT Alkaline Phosphatase Troponin I 0.14 H* C-Reactive Protein NT-Pro-B Natriuret Pep 00922 H Total Protein Albumin TSH Free T4 Urine Color Urine Clarity Urine pH Ur Specific [place] Urine Protein Urine Ketones Urine Blood Urine Nitrite Urine Bilirubin Urine Urobilinogen Ur Leukocyte Esterase Urine RBC Urine WBC Ur Epithelial Cells Urine Crystals Urine Bacteria Urine Casts Urine Mucus Ur Culture Indicated? Urine Glucose Hep Bs Antigen Hep Bs Antibody Hep Bs Antibody, Quant Hep B Core Total Ab Hepatitis C Antibody HIV 1&2 Ag/Ab, 4th Gen 07/07/21 07/07/21 07/07/21 05:40 05:40 05:40 WBC 16.48 H RBC 4.31 L Hgb 12.7 L Hct 40.0 MCV 92.8 MCH 29.5 MCHC 31.8 L RDW 16.7 H Plt Count 285 MPV 10.5 Immature Gran % 0.8 Neutrophils % 83.9 Lymphocytes % 6.9 Monocytes % 8.3 Eosinophils % 0.0 Basophils % 0.1 Nucleated RBC % 0 Absolute Neutrophils 13.83 H Absolute Lymphocytes 1.14 L Absolute Monocytes 1.37 H Absolute Eosinophils 0.00 Absolute Basophils 0.02 PT INR APTT D-Dimer 679 H VBG Lactate Sodium 146 H Potassium 4.3 Chloride 115 H Carbon Dioxide 18.1 L Anion Gap 12.9 H BUN 51 H Creatinine 2.5 H Estimated GFR/1.73 m2 25.44 Glucose 146 H Calcium 8.1 L Magnesium 1.6 L Ferritin 151 Total Bilirubin 0.2 AST 20 ALT 11 L Alkaline Phosphatase 53 Troponin I C-Reactive Protein 1.85 H NT-Pro-B Natriuret Pep Total Protein 5.7 L Albumin 2.3 L TSH Free T4 Urine Color Urine Clarity Urine pH Ur Specific [place] Urine Protein Urine Ketones Urine Blood Urine Nitrite Urine Bilirubin Urine Urobilinogen Ur Leukocyte Esterase Urine RBC Urine WBC Ur Epithelial Cells Urine Crystals Urine Bacteria Urine Casts Urine Mucus Ur Culture Indicated? Urine Glucose Hep Bs Antigen Hep Bs Antibody Hep Bs Antibody, Quant Hep B Core Total Ab Hepatitis C Antibody HIV 1&2 Ag/Ab, 4th Gen 07/07/21 05:40 WBC RBC Hgb Hct MCV MCH MCHC RDW Plt Count MPV Immature Gran % Neutrophils % Lymphocytes % Monocytes % Eosinophils % Basophils % Nucleated RBC % Absolute Neutrophils Absolute Lymphocytes Absolute Monocytes Absolute Eosinophils Absolute Basophils PT 13.4 H INR 1.3 H APTT 31.5 H D-Dimer VBG Lactate Sodium Potassium Chloride Carbon Dioxide Anion Gap BUN Creatinine Estimated GFR/1.73 m2 Glucose Calcium Magnesium Ferritin Total Bilirubin AST ALT Alkaline Phosphatase Troponin I C-Reactive Protein NT-Pro-B Natriuret Pep Total Protein Albumin TSH Free T4 Urine Color Urine Clarity Urine pH Ur Specific [place] Urine Protein Urine Ketones Urine Blood Urine Nitrite Urine Bilirubin Urine Urobilinogen Ur Leukocyte Esterase Urine RBC Urine WBC Ur Epithelial Cells Urine Crystals Urine Bacteria Urine Casts Urine Mucus Ur Culture Indicated? Urine Glucose Hep Bs Antigen Hep Bs Antibody Hep Bs Antibody, Quant Hep B Core Total Ab Hepatitis C Antibody HIV 1&2 Ag/Ab, 4th Gen
--- NOTE | 2021-07-07 08:44 | W.ANESPRE ---
General Info Date of Service Date Performed: 07/07/21 Height: 5 ft 7 in Weight: 68.3 kg Body Mass Index (BMI): 23.6 Meds Allergies and Home Medications Allergies Allergy/AdvReac Type Severity Reaction Status Date / Time No Known Allergies Allergy Verified 07/29/16 02:35 Home Medication Medication Instructions Recorded furosemide 20 mg PO DAILY 07/29/16 hydrocodone-acetaminophen 1 - 2 tab PO Q6-12H PRN MDD 8 07/29/16 TABS/DAY nitroglycerin 0.4 mg SUBLINGUAL DIRECTED PRN 07/29/16 nitroglycerin 1 patch TRANSDERMAL PRN PRN 07/29/16 omeprazole 20 mg PO DAILY 07/29/16 rosuvastatin 1 tab PO DAILY 07/29/16 ipratropium-albuterol 3 ml UPD Q6H #120 vial 08/01/16 fluticasone furoate-vilanterol 1 inh INHALATION DAILY 07/06/21 [Breo Ellipta] meclizine 12.5 mg PO BID PRN 07/06/21 metoprolol tartrate 12.5 mg PO BID 07/06/21 mupirocin 0 applic TOPICAL TID 07/06/21 potassium chloride 20 meq PO DAILY 07/06/21 umeclidinium [Incruse Ellipta] 1 inh INHALATION DAILY 07/06/21 zolpidem 10 mg PO HS 07/06/21 Current Visit Medications: Current Medications Generic Name Dose Route Start Last Admin Trade Name Freq PRN Reason Stop Dose Admin Acetaminophen 0 mg 07/05/21 09:08 Acetaminophen 325 Mg Tab PO Q4H PRN PRN Hydrocodone Bitart/Acetaminophen 1 - 2 tab 07/05/21 09:12 07/07/21 03:45 Hydrocodone 5/Acetaminophen 325 Tab PO 1 tab QID PRN PRN Administration Al Hydrox/Mg Hydrox/Simethicone 30 ml 07/05/21 09:08 Mylanta Suspension 30 Ml Cup PO Q2H PRN PRN Azithromycin 250 mg 07/05/21 08:30 07/06/21 08:54 Azithromycin 250 Mg Tab PO 250 mg DAILY [facility] Administration Budesonide/Formoterol Fumarate 2 puff 07/06/21 20:00 07/07/21 08:17 Budesonide/Formoterol 80/4.5 6.9 Gm 60 Puff Inh IH Not Given BID [facility] Cholecalciferol 2,000 units 07/07/21 08:30 Cholecalciferol (Vitamin D3) 1,000 Unit Tab PO DAILY [facility] Device 1 each 07/06/21 20:00 Inhaler, Assist Device DIRECTED [facility] Dexamethasone 6 mg 07/06/21 08:30 07/07/21 08:18 Dexamethasone 4 Mg/Ml Vial IVP 6 mg DAILY [facility] Administration Dimethicone/Zinc Oxide 0 gm 07/05/21 09:08 Jose Protect Cream 142 Gm Tube TP PRN PRN Docusate Sodium 100 mg 07/05/21 09:08 07/06/21 06:25 Docusate Sodium 100 Mg Cap PO 100 mg TID PRN PRN Administration Folic Acid 1 mg 07/05/21 08:30 07/06/21 08:56 Folic Acid 1 Mg Tab PO 1 mg DAILY [facility] Administration Guaifenesin 200 mg 07/05/21 09:12 Guaifenesin 200 Mg/10 Ml Cup PO Q4H PRN PRN Cough Sodium Chloride 500 mls @ 0 mls/hr 07/05/21 04:35 07/06/21 13:19 Saline 500ml Bag IV 1 mls/hr PRN PRN Administration As Directed Remdesivir 100 mg/ Sodium 100 mls @ 100 mls/hr 07/06/21 08:30 07/06/21 14:43 Chloride IVPB 07/09/21 09:29 Infused Q24H [facility] Infusion Diltiazem HCl 125 mg/ Sodium 125 mls @ 5 mls/hr 07/06/21 23:45 07/07/21 06:54 Chloride IV 15 mg/hr INFUSION [facility] 15 mls/hr Administration Protocol 5 MG/HR Doxycycline Hyclate 100 mg/ 100 mls @ 100 mls/hr 07/07/21 02:00 07/07/21 06:07 Sodium Chloride IVPB Infused Q12H [facility] Infusion Heparin Sodium (Porcine) 25,000 units in 250 mls @ 8 mls/hr 07/07/21 05:00 07/07/21 05:22 IV 8 ml/hr INFUSION [facility] 8 mls/hr Administration Protocol Ceftriaxone Sodium/Dextrose 2 gm in 50 mls @ 100 mls/hr 07/08/21 02:00 Rocephin IVPB Q24H [facility] Phenylephrine HCl 100 mg/ 500 mls @ 28.77 mls/hr 07/07/21 08:15 Sodium Chloride IV INFUSION [facility] Protocol 1.4 MCG/KG/MIN Vasopressin 50 units/ Sodium 500 mls @ 6 mls/hr 07/07/21 08:00 Chloride IV INFUSION [facility] Protocol 0.01 UNIT/MIN IV Miscellaneous Supplies 1 each 07/05/21 04:45 Iv Access IV DIRECTED [facility] Levalbuterol 2 puff 07/06/21 19:53 Levalbuterol Hfa 15 Gm Inh IH Q4H PRN PRN Magnesium Hydroxide 30 ml 07/05/21 09:08 Milk Of Magnesia 30 Ml Cup PO DAILY PRN PRN Magnesium Oxide 400 mg 07/07/21 08:30 Magnesium Oxide 400 Mg Tab PO DAILY [facility] Multivitamins 1 tab 07/05/21 08:30 07/06/21 08:54 Multivitamin Tab PO 1 tab DAILY [facility] Administration Mupirocin 1 gm 07/05/21 12:00 07/06/21 21:27 Mupirocin 2% 15 Gm Tube TP 07/10/21 11:59 1 applic QID [facility] Administration Nicotine 21 mg 07/05/21 09:08 Nicotine 21 Mg/24 Hr Patch TD DAILY PRN PRN Nitroglycerin 0.4 mg 07/05/21 09:15 07/05/21 22:11 Nitroglycerin 0.4 Mg Tab SL 0.4 mg Q5 MIN PRN X3 PRN Administration Chest Pain Omeprazole 20 mg 07/06/21 07:30 07/06/21 08:54 Omeprazole 20 Mg Capcr PO 20 mg DAILY@0730 [facility] Administration Oxazepam 0 mg 07/05/21 09:36 Oxazepam 15 Mg Cap PO DIRECTED PRN Polyethylene Glycol 17 gm 07/05/21 09:08 07/06/21 06:25 Polyethylene Glycol 3350 17 Gm Packet PO 17 gm DAILY PRN PRN Administration Constipation Rosuvastatin Calcium 20 mg 07/05/21 08:30 07/06/21 08:54 Rosuvastatin 10 Mg Tab PO 20 mg DAILY [facility] Administration Sodium Chloride 0 ml 07/05/21 04:35 07/07/21 01:24 Normal Saline Flush 10 Ml Syr IVP 30 ml PRN PRN Administration Tamsulosin HCl 0.4 mg 07/07/21 08:30 Tamsulosin 0.4 Mg Capcr PO DAILY [facility] Thiamine HCl 100 mg 07/06/21 08:30 07/06/21 08:54 Thiamine 100 Mg Tab PO 100 mg DAILY [facility] Administration Umeclidinium Majestic 1 cap 07/07/21 08:30 07/07/21 08:17 Umeclidinium 7 Cap Inhaler IH 1 puffs DAILY [facility] Administration PFSH Active Problems Active Problems: Problem Status Onset Code Ascites R18.8 COPD (chronic obstructive pulmonary disease) J44.9 Left ureteral stone N20.1 Atrial fibrillation with rapid ventricular response I48.91 Hypotension I95.9 Coronary artery disease I25.10 Alcohol abuse F10.10 COPD with exacerbation J44.1 Acute bronchitis J20.9 Chest pain R07.9 Hyperglycemia R73.9 COVID-19 U07.1 Bacterial pneumonia J15.9 Acute kidney injury superimposed on chronic kidney disease N17.9, N18.9 Dyspnea R06.00 Medical History Medical History (Updated 07/06/21 @ 19:47 by Ana Rosa Yan MD) Alcohol abuse Chronic kidney disease Cirrhosis COPD with exacerbation Coronary artery disease Surgical History Surgical History Status post tracheostomy Tobacco Smoking/Tobacco Use Status: Current every day Substance Use Substance use: Never Vital Signs and Lab Results Vital Signs Most Recent Vital Signs in EMR: Most Recent Vital Signs Temp Pulse Resp BP Pulse Ox 35.8 C L 118 H 24 100/65 92 07/07/21 03:25 07/07/21 06:59 07/07/21 06:01 07/07/21 06:01 07/07/21 06:01 Point of Care Results Point of Care Results: Finger Stick Blood Glucose 158 07/05/21 22:05 Lab Results Result Diagrams: 07/07/21 05:40 07/07/21 05:40 Blood Type / Crossmatch: Patient ABO/Rh O Positive 07/05/21 11:30 07/05/21 Antibody Screen NEGATIVE 07/05/21 11:30 07/05/21 Complete Blood Count: White Blood Count 16.48 10^3/uL (4.4-10.8) H 07/07/21 05:40 07/07/21 Red Blood Count 4.31 10^6/uL (4.36-5.78) L 07/07/21 05:40 07/07/21 Hemoglobin 12.7 g/dL (13.5-17.5) L 07/07/21 05:40 07/07/21 Hematocrit 40.0 % (40.0-50.0) 07/07/21 05:40 07/07/21 Platelet Count 285 10^3/uL (130-400) 07/07/21 05:40 07/07/21 Venous Blood Lactate 2.4 mmol/L (0.6-1.4) H* 07/07/21 02:07 07/07/21 Complete Metabolic Panel: Sodium Level 146 mmol/L (136-145) H 07/07/21 05:40 07/07/21 Potassium Level 4.3 mmol/L (3.5-5.1) 07/07/21 05:40 07/07/21 Chloride Level 115 mmol/L (98-107) H 07/07/21 05:40 07/07/21 Carbon Dioxide Level 18.1 mmol/L (21.0-32.0) L 07/07/21 05:40 07/07/21 Blood Urea Nitrogen 51 mg/dL (7-18) H 07/07/21 05:40 07/07/21 Creatinine 2.5 mg/dL (0.70-1.30) H 07/07/21 05:40 07/07/21 Estimated GFR/1.73 m2 25.44 (mL/min/1.73m2) 07/07/21 05:40 07/07/21 Magnesium Level 1.6 mg/dL (1.8-2.4) L 07/07/21 05:40 07/07/21 Calcium Level 8.1 mg/dL (8.5-10.1) L 07/07/21 05:40 07/07/21 Albumin 2.3 g/dL (3.4-5.0) L 07/07/21 05:40 07/07/21 Glucose Level 146 mg/dL (74-106) H 07/07/21 05:40 07/07/21 C-Reactive Protein 1.85 mg/dL (0.0-0.3) H 07/07/21 05:40 07/07/21 Liver Function Panel: Alanine Aminotransferase (ALT/SGPT) 11 U/L (16-63) L 07/07/21 05:40 07/07/21 Aspartate Amino Transf (AST/SGOT) 20 U/L (15-37) 07/07/21 05:40 07/07/21 Coagulation Panel: INR International Normalized Ratio 1.3 (0.9-1.1) H 07/07/21 05:40 07/07/21 Prothrombin Time 13.4 sec (9.3-11.0) H 07/07/21 05:40 07/07/21 Activated Partial Thromboplast Time 31.5 sec (21.0-27.5) H 07/07/21 05:40 07/07/21 D-Dimer 679 ng/mlFEU (<500) H 07/07/21 05:40 07/07/21 Cardiac Panel: Troponin I 0.13 ng/mL (<0.06) H* 07/07/21 08:00 07/07/21 FC-Ttp-N-Type Natriuretic Peptide 93416 pg/mL (<300) H 07/07/21 02:07 07/07/21 Arterial Blood Gas: No Data to Display Venous Blood Gas: Venous Blood pH 7.33 (7.31-7.41) 07/05/21 03:30 07/05/21 Venous Blood Partial Pressure O2 16 mmHg 07/05/21 03:30 07/05/21 Venous Blood Partial Pressure CO2 44 mmHg (41-51) 07/05/21 03:30 07/05/21 Venous Blood Oxygen Saturation 20 % 07/05/21 03:30 07/05/21 Venous Blood HCO3 23 mmol/L (23-28) 07/05/21 03:30 07/05/21 Venous Blood Base Excess -3 mmol/L (-2-3) L 07/05/21 03:30 07/05/21 Venous Blood Total Carbon Dioxide 21 mmol/L (24-29) L 07/05/21 03:30 07/05/21 Pancreas Panel: No Data to Display Thyroid Panel: Thyroid Stimulating Hormone (TSH) 0.33 uIU/mL (0.36-3.74) L 07/06/21 07:30 07/06/21 Infectious Disease: Coronavirus (COVID-19)(PCR) POSITIVE (Negative) A* 07/05/21 03:30 07/05/21 Coronavirus 2019 Source Nasal/Nares 07/05/21 03:30 07/05/21 HIV (1&2) Ag and Ab, 4th Generation Negative (Negative) 07/05/21 11:30 07/05/21 Hepatitis B Surface Antigen Negative (Negative) 07/05/21 11:30 07/05/21 Hepatitis C Antibody Negative (Negative) 07/05/21 11:30 07/05/21 Blood Cultures: No Data to Display Toxicology Panel: Urine Amphetamines Screen Negative (Negative) 07/05/21 17:17 07/05/21 Urine Benzodiazepines Screen Negative (Negative) 07/05/21 17:17 07/05/21 Urine Barbiturates Screen Negative (Negative) 07/05/21 17:17 07/05/21 Urine Cocaine Screen Negative (Negative) 07/05/21 17:17 07/05/21 Urine Methadone Screen Negative (Negative) 07/05/21 17:17 07/05/21 Urine Opiates Screen Positive (Negative) 07/05/21 17:17 07/05/21 Ur Tricyclic Antidepressants Screen Negative (Negative) 07/05/21 17:17 07/05/21 Ur Tetrahydrocannabinol (THC) Scrn Negative (Negative) 07/05/21 17:17 07/05/21 Imaging and Studies Imaging and Studies EKG Summary: A fib Rate 124 07/07/21 Anesthesia Assessment and Plan Anesthesia History Personal History: No History of Anesthesia Complications Family History: No Family History of Anesthesia Complications Exercise Tolerance Exercise Tolerance: Metabolic Equivalents<4 Cardiac & Pulmonary Exam Cardiac Exam: Normal S1/S2 Heart Sounds Pulmonary Exam: Rhonchi Present Implantable Cardiac Device Does patient have a Pacemaker or an ICD?: No Airway Exam Known Difficult Airway: No Previous Airway Comments:: Tracheostomy in situ Mallampati Class: 3 Mouth Opening: Normal (> 3cm) Thyromental Distance: Greater than 3 cm Neck Range of Motion: Full ROM Neck Circumference: Normal Teeth Condition: Edentulous ASA Classification ASA Score: ASA 4 Emergency Case?: Yes NPO Status NPO Status: NPO Clears >2 hours, Solids >8 hours Anesthesia Plan Resuscitation Status: Full Code Anesthesia Technique: MAC Anesthesia Airway Planned: Natural Airway Monitors Used: Standard Monitors
[2021-07-07 08:54] LABS: Troponin I 0.13 ng/mL (<0.06)
[2021-07-07] MEDS: VASOPRESSIN 50 UNITS in Normal Saline 497.5 ML 6 UNITS IV (09:00)
--- NOTE | 2021-07-07 09:00 | DI.RAD_ITS ---
Exam(s) XR RETROGRADE IN OR EXAM: XR RETROGRADE IN OR CLINICAL HISTORY: Left ureteral stone TECHNIQUE: 2D and realtime digital imaging was performed. CONTRAST MATERIAL: Refer to procedure report. COMPARISON: No exams were available for comparison FINDINGS: Fluoroscopy was provided for Dr. Camacho during the performance of a retrograde evaluation of the tiffany l collecting system. Please refer to the procedure report for complete details. Ka,r=4.79 mGy IMPRESSION: RADIATION DOSE DELIVERED:
[2021-07-07] MEDS: Furosemide 40 MG/4 ML VIAL IVP ×2 (09:35→16:06)
[2021-07-07] MEDS: Lactated Ringers 1,000 ML 30 ML IV (10:10)
[2021-07-07] MEDS: Omnipaque 300 MG/ML 50 ML BTL (10:38)
[2021-07-07] MEDS: Lidocaine 2% Jelly 6 ML SYR (10:38)
--- NOTE | 2021-07-07 10:49 | ROE_ITS ---
Date of service: 07/07/21 Time of Service: 10:49 Operative Note Operative Note DATE OF PROCEDURE: 07/07/21 PRE-OP DIAGNOSIS: Left hydronephrosis POST-OP DIAGNOSIS: same PROCEDURE: cystoscopy, left retrograde pyelogram, insert left ureteral stent SURGEON: Edmond Camacho ANESTHESIA TYPE: Local By Surgeon and MAC Refer to Anesthesia Record ESTIMATED BLOOD LOSS: 0 PATHOLOGY: none sent COMPLICATIONS: None Patient was transported to: ICU Patient's condition: critical Implants: 7 [place] Citizen by 22 to 30 cm left ureteral stent Indications: This is a 75 year old man who presented to an outside ER with a 3 week history of cough and shortness of breath. He was diagnosed with pneumonia, but he refused Covid testing and refused admission. After leaving the ER at [facility], he presented to our ER. He agreed to Covid testing and was found to be positive. He agreed to admission. He initially did well, but then developed Atrial Fibrillation with rapid ventricular response. He complained of some abdominal pain. A noncontrast CT of the abdomen and pelvis showed a left ureteral stone and hydronephrosis. We started with conservative management, but over night he began showing signs worrisome for sepsis. He is agreeable to a stent placement in case an obstucted left kidney is the source of his sepsis. Findings: left hydronephrosis Procedure Description: He was brought from the ICU to the OR on 07/07/2021. He was IV anesthetic agents without intubation or airway manipulation. He was placed in the dorsal lithotomy position. His indwelling catheter was removed. 2% Xylocaine jelly was instilled into the urethra to act as a local anesthetic. A 22 [place] cystoscope was passed through the urethra into the bladder. The bladder was inspected with a 30 degree lens. The urethra appeared normal with no strictures. The prostate showed no areas concerning for abscess. The bladder neck was entered and the left ureteral orifice was identified. The orifice was cannulated with a 5 [place] access catheter. Omnipacque was injected under fluoroscopic guidance . This allowed us to outline the collecting system. I then passed a glidewire through the lumen of the access catheter. The catheter was removed leaving the wire in place. A 7 [place] Citizen stent was advanced over the wire. The stent was coiled with the proximal end in the renal pelvis and the distal end in the bladder. The p ositioning of the stent was confirmed both cystoscopically and fluoroscopically. A hydronephrotic drip was seen after the stent was placed, but no purulent urine was seen.
[2021-07-07 11:52] LABS: Procalcitonin < 0.1 ng/mL
[2021-07-07 13:17] LABS: PTT Activated 102.4 sec (21.0-27.5)
--- NOTE | 2021-07-07 13:32 | W.ANESPOSTOP ---
Postoperative Evaluation Date, Time and Location Date Performed: 07/07/21 Time Performed: 11:30 Patient Location: Intensive Care Unit Vital Signs Most Recent Imported Vital Signs: Most Recent Vital Signs Temp Pulse Resp BP Pulse Ox 35.5 C L 111 H 22 124/73 94 07/07/21 12:00 07/07/21 12:00 07/07/21 12:00 07/07/21 12:00 07/07/21 11:00 Pain Score Most Recent Pain Score: Most Recent Pain Score Pain Level 0 07/07/21 12:00 Assessment Mental Status: Awake (Alert & Oriented to Patient Baseline) Airway and Respiratory Function: Patent airway with normal (patient baseline) respiratory exam Cardiovascular Function: Hemodynamically Stable Hydration Status: Adequately Hydrated Nausea & Vomiting: No Nausea or Vomiting Pain: Pain is tolerable per patient Peripheral Nerve Block: Patient did not receive a nerve block
--- NOTE | 2021-07-07 14:11 | NUR.NOTE ---
RN changes sterile water for trach mask vaporization.Nursing Note:
[2021-07-07 14:18] LABS: Troponin I 0.07 ng/mL (<0.06)
[2021-07-07] MEDS: dilTIAZem 30 MG TAB PO ×2 (14:28→19:50)
[2021-07-07] MEDS: MEROPENEM 1 GM in Normal Saline 100 ML IVPB (14:30)
[2021-07-07] MEDS: Polyethylene Glycol 3350 17 GM PACKET PO (14:31)
--- NOTE | 2021-07-07 15:33 | NUR.NOTE ---
Telelphonic update given to patient's daughter.Nursing Note:
[2021-07-07] MEDS: VANCOMYCIN/WATER (PEG) 1.5 GM/300 ML BAG IV (16:00)
--- NOTE | 2021-07-07 18:34 | NUR.NOTE ---
RN speaks to patient's daughter, Heavenly, who informs RN that patient has not had anything to eat in 2 weeks and has remained in bed. Daughter says refused to admit patient so a family member drove him to [facility] where he was admitted. Patient's , Zeynep had a foot amputated 2 months ago and is so worried about her that she is refusing to eat. Daughter will continue to check in for status reports.Nursing Note:
[2021-07-07] MEDS: Mupirocin 2% 15 GM TUBE TP (19:50)
[2021-07-07 21:05] LABS: PTT Activated 52.8 sec (21.0-27.5)
[2021-07-07] MEDS: Acetaminophen 325 MG TAB PO (22:34)
[2021-07-07] MEDS: Bisacodyl 10 MG SUPP PR (22:36)
[2021-07-07] MEDS: dilTIAZem 125 MG in Normal Saline 100 ML 25 MG IV (23:50)
[2021-07-08] VITALS (196 sets, daily range): BP systolic 75–117; BP diastolic 48–76; PULSE 56–171; RESP 19–40; TEMP 31–36.5; O2SAT 86–98
[2021-07-08] MEDS: LORazepam 1 MG TAB PO (00:40)
[2021-07-08] MEDS: MEROPENEM 1 GM in Normal Saline 100 ML IVPB ×2 (02:20→14:26)
[2021-07-08] MEDS: Acetaminophen 325 MG TAB PO ×2 (02:32→08:34)
[2021-07-08 03:37] LABS: PTT Activated 72.2 sec (21.0-27.5)
[2021-07-08] MEDS: dilTIAZem 125 MG in Normal Saline 100 ML 25 MG IV (04:59)
[2021-07-08 07:02] LABS: Abs Immature Grans 0.16 10^3/uL (0.0-0.06); Absolute Lymphocyte Count 1.29 10^3/uL (1.2-3.4); Absolute Monocyte Count 1.63 10^3/uL (0.1-0.8); Basophils % 0.2; HCT 38.9 % (40.0-50.0); HGB 13.1 g/dL (13.5-17.5); Immature Grans % 0.9; Lymphocytes % 7.6; MCH 29.4 pg (27.0-33.0); MCHC 33.7 % (32.0-36.0); MCV 87.2 fL (80-95); MPV 10.2 fL (8.0-11.0); Monocytes % 9.6; Neutrophils % 81.7; Nucleated RBC 0 %; RBC 4.46 10^6/uL (4.36-5.78); RDW 16.2 % (11.8-14.1); RDW-SD 51.7 fL; WBC 17.01 10^3/uL (4.4-10.8)
[2021-07-08 07:26] LABS: Calcium 8.3 mg/dL (8.5-10.1)
[2021-07-08 07:27] LABS: ALT 14 U/L (16-63); AST 24 U/L (15-37); Absolute Basophil Count 0.03 10^3/uL (0.0-0.2); Albumin 2.6 g/dL (3.4-5.0); Alkaline Phosphatase 61 U/L (46-116); Anion Gap 13.7 mmol/L (3-11); BUN 53 mg/dL (7-18); Bilirubin, Total 0.3 mg/dL (0.2-1.0); C-Reactive Protein 1.96 mg/dL (0.0-0.3); CO2 20.3 mmol/L (21.0-32.0); CREATININE 2.3 mg/dL (0.70-1.30); Chloride 115 mmol/L (98-107); Estimated GFR 28.01 (mL/min/1.73m2); Glucose 141 mg/dL (74-106); Potassium 3.4 mmol/L (3.5-5.1); Sodium 149 mmol/L (136-145); Total Protein 6.2 g/dL (6.4-8.2)
[2021-07-08 07:28] LABS: Diff Comment Diff Reviewed; NT-proBNP 10580 pg/mL (<300); RBC Morphology Normal
[2021-07-08 07:29] LABS: Platelet Count 363 10^3/uL (130-400)
[2021-07-08 07:47] LABS: D-Dimer 531 ng/mlFEU (<500)
[2021-07-08 07:53] LABS: Ferritin 295 ng/mL (26-388)
[2021-07-08] MEDS: Normal Saline Flush 10 ML SYR IVP ×2 (08:20→22:42)
[2021-07-08] MEDS: dilTIAZem 30 MG TAB PO (08:21)
[2021-07-08] MEDS: Omeprazole 20 MG CAPCR PO (08:21)
[2021-07-08] MEDS: Dexamethasone 4 MG/ML VIAL 6 MG IVP (08:21)
[2021-07-08] MEDS: Rosuvastatin 10 MG TAB 20 MG PO (08:22)
[2021-07-08] MEDS: Tamsulosin 0.4 MG CAPCR PO (08:22)
[2021-07-08] MEDS: Azithromycin 250 MG TAB PO (08:22)
[2021-07-08] MEDS: Multivitamin TAB 1 TAB PO (08:22)
[2021-07-08] MEDS: Thiamine 100 MG TAB PO (08:22)
[2021-07-08] MEDS: Folic Acid 1 MG TAB PO (08:22)
[2021-07-08] MEDS: Magnesium Oxide 400 MG TAB PO (08:22)
[2021-07-08] MEDS: Cholecalciferol (Vitamin D3) 1,000 UNIT TAB 2000 UNITS PO (08:22)
[2021-07-08] MEDS: Mupirocin 2% 15 GM TUBE TP ×4 (08:24→19:50)
[2021-07-08] MEDS: Budesonide/Formoterol 80/4.5 6.9 GM 60 PUFF INH IH ×2 (08:24→19:45)
[2021-07-08] MEDS: Umeclidinium 7 CAP INHALER 1 CAP IH (08:25)
[2021-07-08] MEDS: Polyethylene Glycol 3350 17 GM PACKET PO (08:33)
--- NOTE | 2021-07-08 09:48 | W.PM.PROGNOT ---
Date of Service Date of service: 07/08/21 Time of Service: 09:48 Assessment and Plan Assessment and plan (1) Left ureteral stone: Status: Acute Assessment and plan: He is maximally drained with his stent and asher catheter. He is on broad spectrum antibiotics. If his urine culture is negative and he does not improve, is there a different etiology? Subjective Subjective Interval history since last seen: No real clinical improvement after stent placement yesterday. He did diurese quite a bit and his weight is down compared to earlier this admission. Exam Narrative Exam Narrative: Vital signs documented elsewhere Blood cultures negative so far but urine culture still pending Objective Last Vital Signs Temp 35.8 C L 07/08/21 03:35 Pulse 68 07/08/21 06:31 Resp 29 H 07/08/21 06:31 BP 117/58 L 07/08/21 06:31 Pulse Ox 90 L 07/08/21 06:31 Laboratory Results - last 24 hr 07/07/21 07/07/21 07/07/21 08:00 12:00 12:00 WBC RBC Hgb Hct MCV MCH MCHC RDW Plt Count MPV Immature Gran % Neutrophils % Lymphocytes % Monocytes % Eosinophils % Basophils % Nucleated RBC % Absolute Neutrophils Absolute Lymphocytes Absolute Monocytes Absolute Eosinophils Absolute Basophils RBC Morphology APTT 102.4 H* D D-Dimer Sodium Potassium Chloride Carbon Dioxide Anion Gap BUN Creatinine Estimated GFR/1.73 m2 Glucose Calcium Ferritin Total Bilirubin AST ALT Alkaline Phosphatase Troponin I 0.07 H C-Reactive Protein NT-Pro-B Natriuret Pep Total Protein Albumin Procalcitonin < 0.1 07/07/21 07/08/21 07/08/21 20:10 02:05 06:40 WBC RBC Hgb Hct MCV MCH MCHC RDW Plt Count MPV Immature Gran % Neutrophils % Lymphocytes % Monocytes % Eosinophils % Basophils % Nucleated RBC % Absolute Neutrophils Absolute Lymphocytes Absolute Monocytes Absolute Eosinophils Absolute Basophils RBC Morphology APTT 52.8 H D 72.2 H D D-Dimer Sodium 149 H Potassium 3.4 L Chloride 115 H Carbon Dioxide 20.3 L Anion Gap 13.7 H BUN 53 H Creatinine 2.3 H Estimated GFR/1.73 m2 28.01 Glucose 141 H Calcium 8.3 L Ferritin 295 Total Bilirubin 0.3 AST 24 ALT 14 L Alkaline Phosphatase 61 Troponin I C-Reactive Protein 1.96 H NT-Pro-B Natriuret Pep 28639 H Total Protein 6.2 L Albumin 2.6 L Procalcitonin 07/08/21 07/08/21 06:40 06:40 WBC 17.01 H RBC 4.46 Hgb 13.1 L Hct 38.9 L MCV 87.2 MCH 29.4 MCHC 33.7 RDW 16.2 H Plt Count 363 MPV 10.2 Immature Gran % 0.9 Neutrophils % 81.7 Lymphocytes % 7.6 Monocytes % 9.6 Eosinophils % 0.0 Basophils % 0.2 Nucleated RBC % 0 Absolute Neutrophils 13.90 H Absolute Lymphocytes 1.29 Absolute Monocytes 1.63 H Absolute Eosinophils 0.00 Absolute Basophils 0.03 RBC Morphology Normal APTT D-Dimer 531 H Sodium Potassium Chloride Carbon Dioxide Anion Gap BUN Creatinine Estimated GFR/1.73 m2 Glucose Calcium Ferritin Total Bilirubin AST ALT Alkaline Phosphatase Troponin I C-Reactive Protein NT-Pro-B Natriuret Pep Total Protein Albumin Procalcitonin
--- NOTE | 2021-07-08 10:28 | NUR.NOTE ---
RN gives patient's daughters Ernestina Posey and Rosalba Adam telephonic updates. Ernestina Posey indicates she is her father's DPOA and that [facility] has a copy of same. Nursing Note:
--- NOTE | 2021-07-08 10:31 | NUR.NOTE ---
Prior to Ruth Madden beginning her attempt to place a PICC line, RN speaks to her about whether the Heparin drip should be stopped. Ruth Madden saw no need for Heparin drip to be stopped so same was not paused in anticipation of said procedure.Nursing Note:
--- NOTE | 2021-07-08 10:35 | NUR.NOTE ---
PICC line placement is being attempted by Ruth Madden now.Nursing Note:
--- NOTE | 2021-07-08 10:45 | DI.RAD_ITS ---
Exam(s) XR PORTABLE CHEST AP POST LINE EXAM: XR PORTABLE CHEST AP POST LINE CLINICAL HISTORY: line placement TECHNIQUE: 2D digital imaging was performed of the chest. One image was obtained. An AP view was ob tained. COMPARISON: CR,XR XR PORTABLE CHEST AP from 07/07/2021 FINDINGS: MEDIASTINUM: Normal. HEART: Normal. PULMONARY VASCULATURE: Normal. Atherosclerosis. LUNGS: The lung clay appears stable compared to the prior examination from 07/07/2021. PLEURAL SPACE: No pleural effusion or pneumothorax. BONE:Within normal limits for the patient's age. OTHER FINDINGS:The tracheostomy tube is stable. There has been interval placement of a right PICC li ne. The tip is in good position at the cavoatrial junction. IMPRESSION: The tip of the newly placed right PICC line is in good position at the cavoatrial junction. DATA REPOSITORY: RADIATION DOSE DELIVERED:
[2021-07-08 11:19] LABS: PTT Activated 46.7 sec (21.0-27.5)
--- NOTE | 2021-07-08 11:29 | DI.VRAD_ITS ---
PROCEDURE INFORMATION: Exam: XR Chest Exam date and time: 07/08/2021 10:50 AM Age: 75 years old Clinical indication: Device placement; Other: Norma placement TECHNIQUE: Imaging protocol: XR of the chest. Views: 1 view. COMPARISON: XR PORTABLE CHEST AP 07/07/2021 7:41 AM FINDINGS: Tubes, catheters and devices: Tracheostomy tube. Right-sided approach PICC terminates over the cavoatrial junction. Lungs: No convincing consolidation. Pleural spaces: No pneumothorax. No sizable pleural effusion. Heart/Mediastinum: Cardiomediastinal silhouette within normal limits. Bones/joints: There is bony irregularity and sclerosis along the right humeral neck which may represent an old fracture. No acute displaced fracture. IMPRESSION: Right-sided approach PICC terminates over the cavoatrial junction. Dictated and Authenticated by: Dawson Wagner MD. Ordering:.[facility] Azeb Rodriguez MD
[2021-07-08] MEDS: VANCOMYCIN 750 MG in Normal Saline 250 ML 166.667 MG IVPB (11:45)
--- NOTE | 2021-07-08 12:38 | PGE_ITS ---
Date of Service Date of service: 07/08/21 Time of Service: 12:38 Assessment and Plan Assessment and plan (1) Hypotension: Status: Acute Assessment and plan: Despite his 2 procalcitonin levels less than 0.1 I am concerned for potential sepsis secondary to either his obstructive uropathy or from pneumonia. I will repeat his procalcitonin tomorrow if this is still negative and his blood cultures remain negative then it is less likely that this is sepsis more likely a volume issue. His [id number] echocardiogram yesterday showed normal LV and RV function although the RV was not as well- visualized as the LV. I will be getting a formal echocardiogram in the morning. Because of his poor oral intake we are going to start TPN which will provide some intravenous volume. Hopefully we can wean down his vasopressors. He remains on maximal dose of vasopressin along with phenylephrine. I am going to stop his phenylephrine and put him on low-dose norepinephrine. There is some concern of worsening his tachycardia with a norepinephrine however I need adequate blood pressure in order to titrate his rate controlling medicines for his A. fib. And phenylephrine alone was not working therefore I added the vasopressin yesterday. Patient had a PICC line placed this morning in order to give a central access for the vasopressors. He remains on meropenem and vancomycin pending results of his sputum blood and urine cultures. If his sputum does not grow an ESBL organism I think we can downgrade his meropenem to a cephalosporin or penicillin. If he is not growing a staph aureus or his urine does not grow an Enterococcus then I think we can discontinue the vancomycin. Qualifiers: Hypotension type: other hypotension type Qualified Code(s): I95.89 - Other hypotension (2) Acute unilateral obstructive uropathy: Status: Acute Assessment and plan: Status post cystoscopy ureteroscopy and left ureteral stent placement July 07, [address] Camacho. Patient is making adequate urine output with stable creatinine. (3) Left ureteral stone: Status: Acute Assessment and plan: as above (4) Acute kidney injury superimposed on chronic kidney disease: Status: Acute Assessment and plan: acute renal failure d/t multiple factors including ureteral obstruction, and patient presented on admission w/ dehydration. (5) Atrial fibrillation with rapid ventricular response: Status: Acute Assessment and plan: Titrate oral diltiazem add low-dose bisoprolol. Hopefully will be able to titrate down his diltiazem drip. Digoxin not added secondary to his chronic kidney disease. Hbsma-uk-elrb ultrasound yesterday showed normal LV and RV function however formal echocardiogram is pending tomorrow. Heparin drip was resumed postoperatively yesterday. (6) COPD (chronic obstructive pulmonary disease): Status: Chronic Assessment and plan: continue bronchodilators/ ICS: ( Symbicort, Incruse Ellipta, prn xopenex), supplemental oxygen, pulmonary toiletry. systemic corticosteroids for his COVID-19 pneumonia Qualifiers: COPD type: chronic bronchitis Chronic bronchitis type: unspecified Qualified Code(s): J42 - Unspecified chronic bronchitis (7) COVID-19: Status: Acute Assessment and plan: cont. Remdesivir (day 4 of 4 of 100 mg dose; had 200 mg on 07/05; continue decadron 6 mg IVP daily. Remains on systemic antibiotics for right lower lobe pneumonia in addition to his Covid pneumonia. Continue meropenem and vancomycin pending sputum culture and final results of his blood and urine cultures. Continue monitoring daily inflammatory markers. Currently on heparin drip for his A. fib. Critical care time spent with the patient examining him and discussing his case with nursing staff as well as reviewing data and putting in orders 60 minutes. Subjective Subjective Interval history since last seen: Patient is becoming discouraged and indicating that he just wants to go home. Nursing staff discussed with him that if he is taken off his vasopressors and diltiazem he will likely . His daughter who is his DPOA is on her way from [facility]. When she arrives I will have a discussion with her and also with the patient regarding his goals of care. Michael armando is having increased oxygen requirements and is now on high flow oxygen at 40 L/min and 65% FiO2. Respiratory did suction for thick purulent brown mucus. This was sent for cultures. The rest of his cultures including blood cultures and urine cultures so far showing no growth. He is afebrile with a mild leukocytosis of 16,000. He is currently on meropenem and vancomycin to cover both respiratory and urinary pathogens. Chest x-ray showing more consolidated infiltrate in the right lower lobe which corresponds with the increased density seen on fckea-dv-uqct ultrasound yesterday. Exam Narrative Exam Narrative: Cachectic appearing elderly male lying in bed on his left side. He does not seem to want engage with me when I ask him questions. He will open his eyes and he will respond to simple commands but when I ask him questions he just closes his eyes and ignores me. Lungs with diminished breath sounds over the right lung base and some basilar rales on the left. Heart is irregularly irregular and tachycardic with no appreciable murmur rub Abdomen is soft nondistended with active bowel sounds. Patient had a large pudding-like dark brown stool that was negative for occult blood. Stool be sent for C. difficile testing Extremities without peripheral edema. Extremities are warm and dry Neuro exam grossly intact no focal deficits. Moves all 4 extremities voluntarily. No gross sensory deficits. No facial asymmetry. Extraocular motion intact. Objective Last Vital Signs Temp 35.8 C L 07/08/21 03:35 Pulse 140 H 07/08/21 10:10 Resp 25 H 07/08/21 10:24 BP 93/58 L 07/08/21 10:10 Pulse Ox 93 07/08/21 10:24 Laboratory Results - last 24 hr 07/07/21 07/07/21 07/07/21 12:00 12:00 20:10 WBC RBC Hgb Hct MCV MCH MCHC RDW Plt Count MPV Immature Gran % Neutrophils % Lymphocytes % Monocytes % Eosinophils % Basophils % Nucleated RBC % Absolute Neutrophils Absolute Lymphocytes Absolute Monocytes Absolute Eosinophils Absolute Basophils RBC Morphology APTT 102.4 H* D 52.8 H D D-Dimer Sodium Potassium Chloride Carbon Dioxide Anion Gap BUN Creatinine Estimated GFR/1.73 m2 Glucose Calcium Ferritin Total Bilirubin AST ALT Alkaline Phosphatase Troponin I 0.07 H C-Reactive Protein NT-Pro-B Natriuret Pep Total Protein Albumin 07/08/21 07/08/21 07/08/21 02:05 06:40 06:40 WBC 17.01 H RBC 4.46 Hgb 13.1 L Hct 38.9 L MCV 87.2 MCH 29.4 MCHC 33.7 RDW 16.2 H Plt Count 363 MPV 10.2 Immature Gran % 0.9 Neutrophils % 81.7 Lymphocytes % 7.6 Monocytes % 9.6 Eosinophils % 0.0 Basophils % 0.2 Nucleated RBC % 0 Absolute Neutrophils 13.90 H Absolute Lymphocytes 1.29 Absolute Monocytes 1.63 H Absolute Eosinophils 0.00 Absolute Basophils 0.03 RBC Morphology Normal APTT 72.2 H D D-Dimer Sodium 149 H Potassium 3.4 L Chloride 115 H Carbon Dioxide 20.3 L Anion Gap 13.7 H BUN 53 H Creatinine 2.3 H Estimated GFR/1.73 m2 28.01 Glucose 141 H Calcium 8.3 L Ferritin 295 Total Bilirubin 0.3 AST 24 ALT 14 L Alkaline Phosphatase 61 Troponin I C-Reactive Protein 1.96 H NT-Pro-B Natriuret Pep 86253 H Total Protein 6.2 L Albumin 2.6 L 07/08/21 07/08/21 06:40 10:00 WBC RBC Hgb Hct MCV MCH MCHC RDW Plt Count MPV Immature Gran % Neutrophils % Lymphocytes % Monocytes % Eosinophils % Basophils % Nucleated RBC % Absolute Neutrophils Absolute Lymphocytes Absolute Monocytes Absolute Eosinophils Absolute Basophils RBC Morphology APTT 46.7 H D D-Dimer 531 H Sodium Potassium Chloride Carbon Dioxide Anion Gap BUN Creatinine Estimated GFR/1.73 m2 Glucose Calcium Ferritin Total Bilirubin AST ALT Alkaline Phosphatase Troponin I C-Reactive Protein NT-Pro-B Natriuret Pep Total Protein Albumin
[2021-07-08] MEDS: Bisoprolol 5 MG TAB 2.5 MG PO (13:38)
[2021-07-08] MEDS: dilTIAZem 30 MG TAB 60 MG PO ×2 (13:38→19:36)
[2021-07-08 14:21] LABS: Calculated LDL 23 mg/dL (<100); Cholesterol 67 mg/dL (<200); HDL Cholesterol 36 mg/dL (40-60); Triglyceride 43 mg/dL (<150)
[2021-07-08 15:03] LABS: C Diff PCR Negative (Negative)
[2021-07-08] MEDS: Insulin Aspart 300 UNITS/3 ML PEN SC ×3 (15:45→23:40)
[2021-07-08] MEDS: VASOPRESSIN 50 UNITS in Normal Saline 497.5 ML 42 UNITS IV (16:04)
[2021-07-08] MEDS: dilTIAZem 125 MG in Normal Saline 100 ML 20 MG IV ×2 (16:51→22:52)
[2021-07-08] MEDS: Dexamethasone 4 MG/ML VIAL IVP (18:02)
--- NOTE | 2021-07-08 19:03 | W.PALLCONSUL ---
Date of service: 07/08/21 Time of Service: 18:04 History of Present Illness History of Present Illness Chief Complaint: covid, hypotension Narrative: From H and P; History of Present Illness Chief Complaint: Shortness of breath Narrative: 75-year-old white male with history of COPD status post chronic tracheostomy, anemia, chronic kidney disease, hypertension, coronary artery disease, cirrhosis, chronic alcohol abuse who presented to [facility] emergency department last night with a 3-week history of shortness of breath and persistent cough. He is unvaccinated for COVID-19 and while in the emergency department he was treated by Dr. Forte who ordered laboratory work-up and chest x-ray EKG and troponin level. He was found to have acute kidney injury in the setting of chronic kidney disease with a creatinine 3.5 and a BUN of 72 was felt to be in prerenal azotemia and was given a liter of normal saline. Chest x-ray demonstrated bibasilar opacities concerning for pneumonia and blood cultures were ordered and collected. He was given 1 g of ceftriaxone and 500 mg of azithromycin. Patient refused to COVID test and although he was advised to be admitted for treatment of his acute kidney injury and pneumonia he declined admission at [facility] and drove himself to [facility] emergency department where he was seen by Dr. Nishant Montague. In the ER a Covid test was obtained and he was found to be positive for SARS-CoV-2. As the patient was out of the window for monoclonal antibody treatment it was recommended he be hospitalized and started on Decadron and Remdesivir. Patient will be continued on antibiotic treatment for community-acquired pneumonia as well. Patient is nonverbal due to his tracheostomy and when I went into his room he had a mask over his face and was ignoring my questions. After much prompting and arousal he would nod yes and no to a few of my questions. Patient was started on Decadron 10 mg IV while in our emergency department. Dr. Montague kept him on IV fluids of normal saline at 125 mL/h which I have since discontinued. Patient is indicated to me inability to void. We will obtain a bladder scan and catheterize as needed. We will also get a renal ultrasound to assess his acute kidney injury. Patient's been placed in respiratory isolation due to his COVID-19 and remdesivir will be started in addition to his Decadron. Although medical records were faxed from [facility] to our emergency department no records were sent up with the patient. Interim Hx: I am meeting Liu in the ICU. Liu understood he was in the hospital. He also understood that he was very sick. Since admission he had undergone stent placement due to obstructive uropathy, and has required pressors to maintain his blood pressure. Additionally he has been tachycardic between 130 and 160s and was on a diltiazem drip. His oxygen requirement is going up. Liu stated to nursing and also to me that he did not want to continue with the aggressive care. He wanted to get rid of all of the different trips etc. and go home. He asked me specifically how long he had to live. I explained that he was on many medications to help to keep him alive. I also explained that if we took these medications away he may . He indicated to me that he wanted to get rid of the medications. We also discussed CODE STATUS and he states that he did not want to be resuscitated. His daughter came from [place]. We did have a family meeting. Consults Consult date: 07/08/21 Requesting physician: Michael Bowie Assessment and Plan Assessment and plan (1) Acute unilateral obstructive uropathy: Status: Acute (2) Volume overload: Status: Acute Qualifiers: Hypervolemia type: other Qualified Code(s): E87.79 - Other fluid overload (3) COPD (chronic obstructive pulmonary disease): Status: Chronic Qualifiers: COPD type: chronic bronchitis Chronic bronchitis type: unspecified Qualified Code(s): J42 - Unspecified chronic bronchitis (4) Atrial fibrillation with rapid ventricular response: Status: Acute (5) Hypotension: Status: Acute Qualifiers: Hypotension type: other hypotension type Qualified Code(s): I95.89 - Other hypotension (6) COVID-19: Status: Acute (7) Palliative care patient: Status: Acute Assessment and plan: COVID-19?oxygen requirement increasing. He has had aggressive treatment to date Obstructive uropathy?underwent stent placement Chronic COPD?status post tracheostomy Atrial fibrillation?working with rate control has been on a diltiazem drip CODE STATUS he clearly indicated that he did not want to be resuscitated or intubated. Liu's daughter arrived during our visit. She was not fully comprehending how sick her father was. With the expectation of being on comfort measures, she will be allowed to go in to see him. Nursing will help with the PPE. Initially she stated that she would want to convince him to continue the medications, but then also understood that she did not want him to be uncomfortable and in pain. She was anxious to talk to him herself. She has not seen him in a year. She did not realize how sick he was during our meeting. During our discussion she did state several times that she wants him to be comfortable. Dr. Zaays was at the family meeting. I did relay to him that the patient wanted comfort measures. I also did have a COLST form signed by Liu to be DNR/DNI I do not expect Liu will live long once the multiple drips have been stopped. I do plan to see Liu tomorrow, his big plan is to get home [place]. Unfortunately that may not be possible. Review of Systems Narrative: Difficult to obtain due to trach, O2 and weakened state Constitutional Constitutional: Reports lethargy, Reports poor appetite, Reports weakness and Reports weight loss Cardiovascular Cardiovascular: Reports rapid heart rate, Reports lightheadedness and Reports dyspnea Respiratory Respiratory: Reports chest congestion and Reports dyspnea Gastrointestinal Gastrointestinal: Reports abdominal pain Musculoskeletal Musculoskeletal: Reports myalgias Neurologic Neurologic: Reports weakness Psychiatric Comments: He wants to go home [facility] Medical History (Updated 07/08/21 @ 19:12 by Elva Moffett MD, [place]) Alcohol abuse Chronic kidney disease Cirrhosis COPD with exacerbation Coronary artery disease Surgical History Status post tracheostomy Social History Smoking/Tobacco Use Status: Current every day Smoking risk assessment performed?: Yes Drug use: Never Do you feel safe at home: Yes Do you feel safe in your relationship?: Yes Exam Const General: in distress, disheveled, frail appearing and ill appearing Nutritional Appearance: thin Orientation: oriented x3 HENMT Ears: hearing grossly normal bilaterally Throat: other (trach in place) Neck Neck: other (tracheostomy) Carotids: normal carotid upstroke Resp Effort & Inspection: abnormal respiratory pattern and labored Auscultation: crackles and diminished lung sounds Cardio Rate: tachycardic GI Palpation: guarding Auscultation: hypoactive bowel sounds Rectal Exam: deferred Extrem General: no pedal edema Psych Appearance: disheveled Attitude: guarded (wants to go home) Results Last Vital Signs Temp 96.6 F L 07/08/21 11:45 Pulse 97 H 07/08/21 14:31 Resp 27 H 07/08/21 14:48 BP 98/52 L 07/08/21 14:31 Pulse Ox 92 07/08/21 14:48 Labs Result diagrams: 07/08/21 06:40 07/08/21 06:40 Labs: Laboratory Results - last 24 hr 07/07/21 07/08/21 07/08/21 20:10 02:05 06:40 WBC RBC Hgb Hct MCV MCH MCHC RDW Plt Count MPV Immature Gran % Neutrophils % Lymphocytes % Monocytes % Eosinophils % Basophils % Nucleated RBC % Absolute Neutrophils Absolute Lymphocytes Absolute Monocytes Absolute Eosinophils Absolute Basophils RBC Morphology APTT 52.8 H D 72.2 H D D-Dimer Sodium 149 H Potassium 3.4 L Chloride 115 H Carbon Dioxide 20.3 L Anion Gap 13.7 H BUN 53 H Creatinine 2.3 H Estimated GFR/1.73 m2 28.01 Glucose 141 H Calcium 8.3 L Ferritin 295 Total Bilirubin 0.3 AST 24 ALT 14 L Alkaline Phosphatase 61 C-Reactive Protein 1.96 H NT-Pro-B Natriuret Pep 03107 H Total Protein 6.2 L Albumin 2.6 L Triglycerides 43 Total Cholesterol 67 LDL Cholesterol, Calc 23 HDL Cholesterol 36 L Stl C.difficile Tox PCR 07/08/21 07/08/21 07/08/21 06:40 06:40 10:00 WBC 17.01 H RBC 4.46 Hgb 13.1 L Hct 38.9 L MCV 87.2 MCH 29.4 MCHC 33.7 RDW 16.2 H Plt Count 363 MPV 10.2 Immature Gran % 0.9 Neutrophils % 81.7 Lymphocytes % 7.6 Monocytes % 9.6 Eosinophils % 0.0 Basophils % 0.2 Nucleated RBC % 0 Absolute Neutrophils 13.90 H Absolute Lymphocytes 1.29 Absolute Monocytes 1.63 H Absolute Eosinophils 0.00 Absolute Basophils 0.03 RBC Morphology Normal APTT 46.7 H D D-Dimer 531 H Sodium Potassium Chloride Carbon Dioxide Anion Gap BUN Creatinine Estimated GFR/1.73 m2 Glucose Calcium Ferritin Total Bilirubin AST ALT Alkaline Phosphatase C-Reactive Protein NT-Pro-B Natriuret Pep Total Protein Albumin Triglycerides Total Cholesterol LDL Cholesterol, Calc HDL Cholesterol Stl C.difficile Tox PCR 07/08/21 13:00 WBC RBC Hgb Hct MCV MCH MCHC RDW Plt Count MPV Immature Gran % Neutrophils % Lymphocytes % Monocytes % Eosinophils % Basophils % Nucleated RBC % Absolute Neutrophils Absolute Lymphocytes Absolute Monocytes Absolute Eosinophils Absolute Basophils RBC Morphology APTT D-Dimer Sodium Potassium Chloride Carbon Dioxide Anion Gap BUN Creatinine Estimated GFR/1.73 m2 Glucose Calcium Ferritin Total Bilirubin AST ALT Alkaline Phosphatase C-Reactive Protein NT-Pro-B Natriuret Pep Total Protein Albumin Triglycerides Total Cholesterol LDL Cholesterol, Calc HDL Cholesterol Stl C.difficile Tox PCR Negative
[2021-07-08] MEDS: MORPHine 2 MG/ML SYR 1 MG IVP (19:06)
--- NOTE | 2021-07-08 20:05 | NUR.NOTE ---
07/08/21 at 1740: Dr. Moffett in unit for hospice consult. Visited patient in his room and discussed his treatment options. Code Status changed to DNR. 1750: Daughter Ernestina and her Amos arrived in unit. 1755: Dr. Moffett discussed patient wishes with daughter and her . Joined by Sr. Bowie at 1800. Code status updated to DNR. Discussed stopping treatment with daughter. Daughter wanted to give a little more time for treatment before changing to comfort measures. Daughter requested to go in room to visit with father. 1810: Daughter informed verbally of risk of getting covid if visiting in room to visit with father. Stated she understood and agreed to used PAPR. Informed her visit was for only 20 minutes. Daughter gowned & gloved and used PAPR and visited her father with nurse Jackie Lindquist RN present in room. to visit. Nursing Note: 1830: Daughter completed her visitied with her father. 1835: reviewed phone numbers with daughter and updated hospital facesheet with correct numbers to reach the patient's .All patient belongings given to daughter to take home. patient preferred to have his wallet placed in safe. 1840:Patient's wallet placed in safe.
[2021-07-08] MEDS: Digoxin 0.5 MG/2 ML AMP 0.25 MG IVP (22:40)
[2021-07-08] MEDS: MORPHine 2 MG/ML SYR IVP (22:47)
[2021-07-09] VITALS (123 sets, daily range): BP systolic 68–118; BP diastolic 41–70; PULSE 53–169; RESP 18–39; TEMP 31–36.1; O2SAT 85–97
[2021-07-09] MEDS: MEROPENEM 1 GM in Normal Saline 100 ML IVPB (00:51)
[2021-07-09] MEDS: Digoxin 0.5 MG/2 ML AMP 0.25 MG IVP ×3 (03:55→11:42)
[2021-07-09] MEDS: MORPHine 2 MG/ML SYR IVP ×8 (04:01→22:20)
[2021-07-09] MEDS: VASOPRESSIN 50 UNITS in Normal Saline 497.5 ML 42 UNITS IV (04:15)
[2021-07-09] MEDS: dilTIAZem 125 MG in Normal Saline 100 ML 20 MG IV ×2 (05:23→12:09)
[2021-07-09] MEDS: Insulin Aspart 300 UNITS/3 ML PEN SC ×2 (05:45→12:10)
[2021-07-09] MEDS: Azithromycin 250 MG TAB PO (07:03)
[2021-07-09] MEDS: Rosuvastatin 10 MG TAB 20 MG PO (07:03)
[2021-07-09] MEDS: Omeprazole 20 MG CAPCR PO (07:04)
[2021-07-09] MEDS: HYDROcodone 5/Acetaminophen 325 TAB PO (07:04)
[2021-07-09] MEDS: Cholecalciferol (Vitamin D3) 1,000 UNIT TAB 2000 UNITS PO (07:04)
[2021-07-09] MEDS: Magnesium Oxide 400 MG TAB PO (07:04)
[2021-07-09 07:05] LABS: Absolute Basophil Count 0.03 10^3/uL (0.0-0.2); Absolute Lymphocyte Count 0.98 10^3/uL (1.2-3.4); Absolute Monocyte Count 1.39 10^3/uL (0.1-0.8); Absolute Neutrophil Count 11.61 10^3/uL (1.2-6.7); Basophils % 0.2; HCT 35.6 % (40.0-50.0); HGB 11.9 g/dL (13.5-17.5); Immature Grans % 1.4; Lymphocytes % 6.9; MCH 29.5 pg (27.0-33.0); MCHC 33.4 % (32.0-36.0); MCV 88.1 fL (80-95); MPV 10.9 fL (8.0-11.0); Monocytes % 9.8; Neutrophils % 81.7; Nucleated RBC 0 %; Platelet Count 271 10^3/uL (130-400); RBC 4.04 10^6/uL (4.36-5.78); RDW 16.3 % (11.8-14.1); RDW-SD 53.1 fL; WBC 14.21 10^3/uL (4.4-10.8)
[2021-07-09] MEDS: Folic Acid 1 MG TAB PO (07:05)
[2021-07-09] MEDS: Tamsulosin 0.4 MG CAPCR PO (07:05)
[2021-07-09] MEDS: dilTIAZem 30 MG TAB 60 MG PO (07:05)
[2021-07-09] MEDS: Thiamine 100 MG TAB PO (07:06)
[2021-07-09] MEDS: VANCOMYCIN 750 MG in Normal Saline 250 ML 167 MG IVPB (07:06)
[2021-07-09] MEDS: Multivitamin TAB 1 TAB PO (07:06)
[2021-07-09] MEDS: Mupirocin 2% 15 GM TUBE TP (07:07)
[2021-07-09] MEDS: Budesonide/Formoterol 80/4.5 6.9 GM 60 PUFF INH IH (07:08)
[2021-07-09 07:41] LABS: INR 1.3 (0.9-1.1); Prothrombin Time 13.3 sec (9.3-11.0)
[2021-07-09 07:43] LABS: D-Dimer 650 ng/mlFEU (<500)
[2021-07-09] MEDS: Umeclidinium 7 CAP INHALER 1 CAP IH (08:25)
--- NOTE | 2021-07-09 08:37 | PCPN_ITS ---
Date of service: 07/09/21 Time of Service: 08:37 Assessment and Plan Assessment and plan (1) Acute unilateral obstructive uropathy: Status: Acute (2) Volume overload: Status: Acute Qualifiers: Hypervolemia type: other Qualified Code(s): E87.79 - Other fluid overload (3) COPD (chronic obstructive pulmonary disease): Status: Chronic Qualifiers: COPD type: chronic bronchitis Chronic bronchitis type: unspecified Qualified Code(s): J42 - Unspecified chronic bronchitis (4) Atrial fibrillation with rapid ventricular response: Status: Acute (5) COVID-19: Status: Acute (6) Palliative care patient: Status: Acute Assessment and plan: Liu continues to be in a precarious Situation. He wants to go home, but stopping the multiple drips will probably cause him to quickly. My recommendations is to contact [facility] to see if that can be set up. I think it is doubtful that he would be able to stay alive without the multiple meds. I also recommend that there be a 2-hour window to see how he does off of the meds prior to starting the transport or he may during transport The family did know that I was going to be here at 7 but was not available for me to speak with them Discussion with Dr. Zayas Subjective Subjective Interval history since last seen: I saw Liu and his family last evening in the ICU. His daughter did going to see her father, assuming he was going on comfort measures. She did not want him to go on comfort measures and therefore all of the interventions were carried over through the night. Despite the multiple interventions he did have tachycardia overnight and received half dose of digoxin. He states today that he is feeling better. His abdomen is not as tender. He is sitting up in his bed on his own Exam Narrative Exam Narrative: Liu is sitting on his bed on his own. He communicates again that his primary objective is to get home as soon as possible. He wants to stop all of his medications. Resp Effort & Inspection: abnormal respiratory pattern (Better airflow today still tachypneic) Auscultation: diminished lung sounds Cardio Rate: tachycardic GI Palpation: soft, no hepatosplenomegaly and no guarding Psych Mood: congruent mood (Better spirits today) Attitude: cooperative Objective Last Vital Signs Temp 97.0 F L 07/09/21 04:00 Pulse 67 07/09/21 08:01 Resp 29 H 07/09/21 08:12 BP 115/65 07/09/21 08:01 Pulse Ox 95 07/09/21 08:12 Laboratory Results - last 24 hr 07/08/21 07/08/21 07/08/21 06:40 10:00 13:00 WBC RBC Hgb Hct MCV MCH MCHC RDW Plt Count MPV Immature Gran % Neutrophils % Lymphocytes % Monocytes % Eosinophils % Basophils % Nucleated RBC % Absolute Neutrophils Absolute Lymphocytes Absolute Monocytes Absolute Eosinophils Absolute Basophils PT INR APTT 46.7 H D D-Dimer Sodium 149 H Potassium 3.4 L Chloride 115 H Carbon Dioxide 20.3 L Anion Gap 13.7 H BUN 53 H Creatinine 2.3 H Estimated GFR/1.73 m2 28.01 Glucose 141 H Calcium 8.3 L Ferritin 295 Total Bilirubin 0.3 AST 24 ALT 14 L Alkaline Phosphatase 61 C-Reactive Protein 1.96 H NT-Pro-B Natriuret Pep 51586 H Total Protein 6.2 L Albumin 2.6 L Triglycerides 43 Total Cholesterol 67 LDL Cholesterol, Calc 23 HDL Cholesterol 36 L Stl C.difficile Tox PCR Negative 07/09/21 07/09/21 06:35 06:35 WBC 14.21 H RBC 4.04 L Hgb 11.9 L Hct 35.6 L MCV 88.1 MCH 29.5 MCHC 33.4 RDW 16.3 H Plt Count 271 MPV 10.9 Immature Gran % 1.4 Neutrophils % 81.7 Lymphocytes % 6.9 Monocytes % 9.8 Eosinophils % 0.0 Basophils % 0.2 Nucleated RBC % 0 Absolute Neutrophils 11.61 H Absolute Lymphocytes 0.98 L Absolute Monocytes 1.39 H Absolute Eosinophils 0.00 Absolute Basophils 0.03 PT 13.3 H INR 1.3 H APTT D-Dimer 650 H Sodium Potassium Chloride Carbon Dioxide Anion Gap BUN Creatinine Estimated GFR/1.73 m2 Glucose Calcium Ferritin Total Bilirubin AST ALT Alkaline Phosphatase C-Reactive Protein NT-Pro-B Natriuret Pep Total Protein Albumin Triglycerides Total Cholesterol LDL Cholesterol, Calc HDL Cholesterol Stl C.difficile Tox PCR
--- NOTE | 2021-07-09 09:04 | NUR.NOTE ---
5819 I spoke with Ernestina Kalpesh (patient's daughter and DPOA) this AM. She states she understands that the patient is likely not going to recover and the medications are holding him stable right now but it is not a long-term solution. She states she wants to move the patient to AERIAL SURVEY TECHNICIAN today but would like to start it after she is here to visit around 1PM. She is agreeable to titrating the vasopressors down as much as the patient is able to tolerate. She understands that the patient could start to fail before 1PM and agrees that we should call her and she will try to come. She is approx 30 min away. Nursing Note:
[2021-07-09 09:17] LABS: ALT 12 U/L (16-63); AST 22 U/L (15-37); Albumin 2.3 g/dL (3.4-5.0); Alkaline Phosphatase 54 U/L (46-116); Anion Gap 13.1 mmol/L (3-11); BUN 59 mg/dL (7-18); Bilirubin, Total 0.3 mg/dL (0.2-1.0); CO2 18.9 mmol/L (21.0-32.0); CREATININE 1.8 mg/dL (0.70-1.30); Calcium 8.8 mg/dL (8.5-10.1); Chloride 118 mmol/L (98-107); Estimated GFR 37.17 (mL/min/1.73m2); Glucose 173 mg/dL (74-106); Potassium 3.3 mmol/L (3.5-5.1); Sodium 150 mmol/L (136-145); Total Protein 5.4 g/dL (6.4-8.2)
[2021-07-09 09:18] LABS: Streptococcus Pneumoniae Ag, U Negative (Negative)
[2021-07-09] MEDS: Dexamethasone 10 MG/ML VIAL IVP (09:18)
[2021-07-09] MEDS: Bisoprolol 5 MG TAB PO (09:19)
[2021-07-09 09:29] LABS: Ferritin 428 ng/mL (26-388)
[2021-07-09 09:40] LABS: C-Reactive Protein 1.22 mg/dL (0.0-0.3); Magnesium 1.9 mg/dL (1.8-2.4)
[2021-07-09 09:53] LABS: Digoxin 1.49 ng/mL (0.90-2.00)
[2021-07-09 10:05] LABS: PHOSPHORUS 2.2 mg/dL (2.6-4.7)
--- NOTE | 2021-07-09 10:47 | PGE_ITS ---
Date of Service Date of service: 07/09/21 Time of Service: 10:47 Assessment and Plan Assessment and plan (1) Hypotension: Status: Acute Assessment and plan: So far blood cultures have shown no growth. Sputum culture from yesterday showed normal jett and fungus on the Gram stain. Culture is pending. His MRSA screen was negative. Urine cultures also showed no growth. At this time I think his hypotension is being driven more by his rapid atrial fibrillation than anything. For this reason I was considering DCC cardioversion. This would be somewhat risky for stroke given that we cannot do a YIFAN prior to cardioversion. However the patient has indicated he does not want cardioversion even even if this would convert him to sinus rhythm and stabilize his blood pressure. He wants all treatment to be withdrawn except for comfort measures once he has had a visit with his family. Qualifiers: Hypotension type: other hypotension type Qualified Code(s): I95.89 - Other hypotension (2) Acute unilateral obstructive uropathy: Status: Acute Assessment and plan: Status post cystoscopy ureteroscopy and left ureteral stent placement July 07, [address] Camacho. Patient is making adequate urine output with stable creatinine. (3) Left ureteral stone: Status: Acute Assessment and plan: as above (4) Acute kidney injury superimposed on chronic kidney disease: Status: Acute Assessment and plan: acute renal failure d/t multiple factors including ureteral obstruction, and patient presented on admission w/ dehydration. (5) Atrial fibrillation with rapid ventricular response: Status: Acute Assessment and plan: Patient remains in rapid atrial fibrillation despite being on oral diltiazem and oral bisoprolol and IV diltiazem. Diltiazem drip is running at 20 mg/h. In spite of this he has heart rates in the 140s to 150s. Patient was digitalized last night by Dr. Knott and given additional doses by myself this morning. It had virtually no effect on his heart rate and rhythm. At this point once his family has had a visit with him we will honor the patient's wishes and discontinue all active medical treatment except for those for comfort measures. (6) COPD (chronic obstructive pulmonary disease): Status: Chronic Assessment and plan: Continue supportive care until patient has had his family visit at that point we will initiate comfort measures and discontinue all active treatment of his COVID pneumonia and his bacterial pneumonia and cease further treatment of his atrial fibrillation. Qualifiers: COPD type: chronic bronchitis Chronic bronchitis type: unspecified Qualified Code(s): J42 - Unspecified chronic bronchitis (7) COVID-19: Status: Acute Assessment and plan: Patient has been treated with Remdesivir and Decadron for his COVID-19 pneumonia he has been supported with high flow oxygen for his tracheostomy. I just learned this morning that we do have limited doses of Actemra however given that the patient wishes to go on BEHAVIORAL MEDICAL DIRECTOR status we will withhold giving Actemra since it will not make any difference in his outcome at this point. Subjective Subjective Interval history since last seen: Patient remains on vasopressin and norepinephrine for blood pressure support and diltiazem drip for his rapid atrial fibrillation. Dr. Moffett met with the patient last night and the patient was adamant that he wants everything discontinued. His desire is to return home to his . Unfortunately that is not a feasible solution since he likely will within hours of discontinuing his vasopressors and diltiazem. His daughter and her significant other came in from [place] last night and I met with them along with Dr. Moffett and discussed [facility] critical condition with all of his medical problems including his COVID-19 pneumonia, rapid atrial fibrillation, obstructive uropathy, and continued hypotension. The one thing we have not tried in controlling his hypotension and atrial fibrillation would be DCC cardioversion. However, patient has indicated that he does not want cardioversion. He wants a visit w/ his daughter and a tele visit w/ his and then proceed to BEHAVIORAL MEDICAL DIRECTOR Exam Narrative Exam Narrative: Elderly white male who is sitting up in bed he is alert and oriented. He is able to express his wishes by temporarily plugging his tracheostomy and speaking to me. Lungs with bilateral coarse rhonchi and expiratory wheezes Heart is irregularly irregular and tachycardic Abdomen soft nontender normal active bowel sounds Extremities without cyanosis or edema Objective Last Vital Signs Temp 36.1 C L 07/09/21 07:30 Pulse 150 H 07/09/21 09:17 Resp 29 H 07/09/21 08:12 BP 96/56 L 07/09/21 09:17 Pulse Ox 94 07/09/21 10:05 Laboratory Results - last 24 hr 07/06/21 07/08/21 07/08/21 10:25 06:40 10:00 WBC RBC Hgb Hct MCV MCH MCHC RDW Plt Count MPV Immature Gran % Neutrophils % Lymphocytes % Monocytes % Eosinophils % Basophils % Nucleated RBC % Absolute Neutrophils Absolute Lymphocytes Absolute Monocytes Absolute Eosinophils Absolute Basophils PT INR APTT 46.7 H D D-Dimer Sodium 149 H Potassium 3.4 L Chloride 115 H Carbon Dioxide 20.3 L Anion Gap 13.7 H BUN 53 H Creatinine 2.3 H Estimated GFR/1.73 m2 28.01 Glucose 141 H Calcium 8.3 L Phosphorus Magnesium Ferritin 295 Total Bilirubin 0.3 AST 24 ALT 14 L Alkaline Phosphatase 61 C-Reactive Protein 1.96 H NT-Pro-B Natriuret Pep 96477 H Total Protein 6.2 L Albumin 2.6 L Triglycerides 43 Total Cholesterol 67 LDL Cholesterol, Calc 23 HDL Cholesterol 36 L Stl C.difficile Tox PCR Digoxin Ur Strep pneumoniae Ag Negative 07/08/21 07/09/21 07/09/21 13:00 06:35 06:35 WBC 14.21 H RBC 4.04 L Hgb 11.9 L Hct 35.6 L MCV 88.1 MCH 29.5 MCHC 33.4 RDW 16.3 H Plt Count 271 MPV 10.9 Immature Gran % 1.4 Neutrophils % 81.7 Lymphocytes % 6.9 Monocytes % 9.8 Eosinophils % 0.0 Basophils % 0.2 Nucleated RBC % 0 Absolute Neutrophils 11.61 H Absolute Lymphocytes 0.98 L Absolute Monocytes 1.39 H Absolute Eosinophils 0.00 Absolute Basophils 0.03 PT INR APTT D-Dimer Sodium 150 H Potassium 3.3 L Chloride 118 H Carbon Dioxide 18.9 L Anion Gap 13.1 H BUN 59 H Creatinine 1.8 H Estimated GFR/1.73 m2 37.17 Glucose 173 H Calcium 8.8 Phosphorus Magnesium 1.9 Ferritin 428 H Total Bilirubin 0.3 AST 22 ALT 12 L Alkaline Phosphatase 54 C-Reactive Protein 1.22 H NT-Pro-B Natriuret Pep Total Protein 5.4 L Albumin 2.3 L Triglycerides Total Cholesterol LDL Cholesterol, Calc HDL Cholesterol Stl C.difficile Tox PCR Negative Digoxin Ur Strep pneumoniae Ag 07/09/21 07/09/21 06:35 06:35 WBC RBC Hgb Hct MCV MCH MCHC RDW Plt Count MPV Immature Gran % Neutrophils % Lymphocytes % Monocytes % Eosinophils % Basophils % Nucleated RBC % Absolute Neutrophils Absolute Lymphocytes Absolute Monocytes Absolute Eosinophils Absolute Basophils PT 13.3 H INR 1.3 H APTT D-Dimer 650 H Sodium Potassium Chloride Carbon Dioxide Anion Gap BUN Creatinine Estimated GFR/1.73 m2 Glucose Calcium Phosphorus 2.2 L Magnesium Ferritin Total Bilirubin AST ALT Alkaline Phosphatase C-Reactive Protein NT-Pro-B Natriuret Pep Total Protein Albumin Triglycerides Total Cholesterol LDL Cholesterol, Calc HDL Cholesterol Stl C.difficile Tox PCR Digoxin 1.49 Ur Strep pneumoniae Ag
[2021-07-09] MEDS: dilTIAZem 25 MG/5 ML VIAL 15 MG IVP (11:41)
[2021-07-09] MEDS: Normal Saline Flush 10 ML SYR IVP ×3 (11:43→21:00)
--- NOTE | 2021-07-09 12:19 | W.PM.PROGNOT ---
Date of Service Date of service: 07/09/21 Time of Service: 12:19 Assessment and Plan Assessment and plan (1) Left ureteral stone: Status: Acute Assessment and plan: He is not responding as we would have expected if all of his issues were related to urosepsis and a ureteral stone. Based on the patient's wishes, aggressive medical therapy will be withdrawn this afternoon. If he does happen to recover and survive this episode, he will need to be mindful that he has a ureteral stent in place and that further surgical treatment to remove the stent and address the stone will be necessary. Subjective Subjective Interval history since last seen: He has remained hypotensive and tachycardic even with the urgent stent placement from this weekend. The patient and his family have expressed their wish that no aggressive treatment be continued. Objective Last Vital Signs Temp 36.1 C L 07/09/21 07:30 Pulse 146 H 07/09/21 11:46 Resp 28 H 07/09/21 11:06 BP 96/56 L 07/09/21 11:46 Pulse Ox 94 07/09/21 11:06 Laboratory Results - last 24 hr 07/06/21 07/08/21 07/08/21 10:25 06:40 13:00 WBC RBC Hgb Hct MCV MCH MCHC RDW Plt Count MPV Immature Gran % Neutrophils % Lymphocytes % Monocytes % Eosinophils % Basophils % Nucleated RBC % Absolute Neutrophils Absolute Lymphocytes Absolute Monocytes Absolute Eosinophils Absolute Basophils PT INR D-Dimer Sodium 149 H Potassium 3.4 L Chloride 115 H Carbon Dioxide 20.3 L Anion Gap 13.7 H BUN 53 H Creatinine 2.3 H Estimated GFR/1.73 m2 28.01 Glucose 141 H Calcium 8.3 L Phosphorus Magnesium Ferritin 295 Total Bilirubin 0.3 AST 24 ALT 14 L Alkaline Phosphatase 61 C-Reactive Protein 1.96 H NT-Pro-B Natriuret Pep 83127 H Total Protein 6.2 L Albumin 2.6 L Triglycerides 43 Total Cholesterol 67 LDL Cholesterol, Calc 23 HDL Cholesterol 36 L Stl C.difficile Tox PCR Negative Digoxin Ur Strep pneumoniae Ag Negative 07/09/21 07/09/21 07/09/21 06:35 06:35 06:35 WBC 14.21 H RBC 4.04 L Hgb 11.9 L Hct 35.6 L MCV 88.1 MCH 29.5 MCHC 33.4 RDW 16.3 H Plt Count 271 MPV 10.9 Immature Gran % 1.4 Neutrophils % 81.7 Lymphocytes % 6.9 Monocytes % 9.8 Eosinophils % 0.0 Basophils % 0.2 Nucleated RBC % 0 Absolute Neutrophils 11.61 H Absolute Lymphocytes 0.98 L Absolute Monocytes 1.39 H Absolute Eosinophils 0.00 Absolute Basophils 0.03 PT 13.3 H INR 1.3 H D-Dimer 650 H Sodium 150 H Potassium 3.3 L Chloride 118 H Carbon Dioxide 18.9 L Anion Gap 13.1 H BUN 59 H Creatinine 1.8 H Estimated GFR/1.73 m2 37.17 Glucose 173 H Calcium 8.8 Phosphorus Magnesium 1.9 Ferritin 428 H Total Bilirubin 0.3 AST 22 ALT 12 L Alkaline Phosphatase 54 C-Reactive Protein 1.22 H NT-Pro-B Natriuret Pep Total Protein 5.4 L Albumin 2.3 L Triglycerides Total Cholesterol LDL Cholesterol, Calc HDL Cholesterol Stl C.difficile Tox PCR Digoxin Ur Strep pneumoniae Ag 07/09/21 06:35 WBC RBC Hgb Hct MCV MCH MCHC RDW Plt Count MPV Immature Gran % Neutrophils % Lymphocytes % Monocytes % Eosinophils % Basophils % Nucleated RBC % Absolute Neutrophils Absolute Lymphocytes Absolute Monocytes Absolute Eosinophils Absolute Basophils PT INR D-Dimer Sodium Potassium Chloride Carbon Dioxide Anion Gap BUN Creatinine Estimated GFR/1.73 m2 Glucose Calcium Phosphorus 2.2 L Magnesium Ferritin Total Bilirubin AST ALT Alkaline Phosphatase C-Reactive Protein NT-Pro-B Natriuret Pep Total Protein Albumin Triglycerides Total Cholesterol LDL Cholesterol, Calc HDL Cholesterol Stl C.difficile Tox PCR Digoxin 1.49 Ur Strep pneumoniae Ag
--- NOTE | 2021-07-09 14:12 | PDOC.CMPRO ---
- If Service Date Differs Date of service: 07/09/21 Time of Service: 14:12 Care Management Progress Note S/O: Liu met with Dr. Moffett again today, as well as the Hospitalist, and has decided to stop all aggressive treatment. He will transition to comfort measures this afternoon, after his daughter, Ernestina, visits. CM called and spoke to his , Zeynep, and other daughter, Heavenly, and coordinated a video call while Ernestina is visiting. Per report, it is expected that once his medications are stopped, he will pass quickly. CM checked in later, and his daughter was in the room with him. CM will continue to support Liu and his family during this difficult time. A: Liu is a 75 year old male admitted to [facility] on 07/05/21 with Covid, pneumonia. P: Liu has transitioned to comfort measures, and all aggressive treatment has been stopped. He will remain at [facility] for his end of life care. His daughter, Ernestina, has been approved to visit him before he passes. CM will continue to support Liu and his family.
[2021-07-09] MEDS: LORazepam 2 MG/ML VIAL IVP ×5 (15:15→22:30)
--- NOTE | 2021-07-09 15:41 | NUR.NOTE ---
Ernestina and a male relative arrived to visit the patient. They were briefed on the patient's status. We reviewed again that the patient and family wanted to visit and then we would remove the monitor and IV pressors when the patient and family were ready. This plan had been communicated to Inocencia SIMPSON, Dr. Bowie, Ernestina, and the patient several times throughout the day and the family and patient kept verifying that this aligned with their goals. The patient repeats that he wants to go home and we have reiterated that how his body handles being off the meds would determine his ability to go home and it is likely he would not survive being off the meds. The family was in the room video calling with multiple family members including the patient's who is out in the car. She is unvaccinated and unable to to come in. Her covid status is also under question. While visiting, the patient patient became more adamant and agitated that he was going home. He took his trach out and his 02 mask off several times. I was in the room supporting the family and patient. I explained to the patient that going home required us stopping his medications that were keeping him alive and stopping monitoring. I explained that we also wish for him to go home and fulfil his goal and if his body tolerated being off we could consider that possibility. However, it is very likely he would very quickly after being removed from the medications. His desire to go home equals removing the meds, removing the meds equals a like fast here in the hospital. The patient thought a few minutes and was adamant he wanted to be removed from the pressors and monitor. I told him I would speak with Dr. Bowie on ordering this while he visited with his family and the patient agreed. The family is in agreement that the patient can chose what he wants to do. the male visitor was trying to convice the patient to leave the meds and wires on and felt that family presence was increasing the patient's desire to go home. He was done visiting and I assisted with his doffing. Ernestnia stayed to be with her dad during his passing. I talked with Dr. Bowie in his office and explained the patient's desires. he agreed to place STAFF ASSISTANT orders and gave a verbal order to remove the pressors and leads. Patient taken off the monitor at 1417 and pressors stopped. The patient began bobbing his head slightly after 1-2 min and began to lose consciousness. He began resting with his eyes closed and his face started turning chawla. Ernestina started asking the patient if he was ready to and asked him to stay on the medications for now for her sake. The patient sat up and was adament that he was going home and wanted everything off. I could see the daughter was conflicted about the patient passing with her there and the patient began stating that he wanted the meds on. I quickly turned both pressor on and the patient was able to sit and talk. He agreed to keep the meds on while the daughter got doffed and would decide what he wanted to do after she left. The daughter expressed after leaving the room that she was not ready for him to pass with her here and if the patient wanted the meds turned off later when she left she was okay with us following his wishes and she understood that he likely would not survive long. The patient has been resting comfortably since the daughter left. Fabio Tabares RN came on just as the daughter was leaving and was updated on the situation. She is planning to leave the medication running until the patient expresses the desire to have the pressors turned off. Dr. Bowie came to the unit and is aware of the happenings. He agrees with the plan. Ernestina would like us to call only her when the patient passes and she will tell the and family. Nursing Note:
[2021-07-09 19:22] LABS: Legionella Ag Detection Urine Negative (Negative)
[2021-07-10] VITALS (50 sets, daily range): O2SAT 77–92
[2021-07-10] MEDS: MORPHine 2 MG/ML SYR IVP ×6 (04:25→15:19)
--- NOTE | 2021-07-10 09:39 | CMPROGNOTE_ITS ---
Care Management Progress Note S/O: Liu remains in the ICU for end of life care. CM will continue to support Liu and his family during this difficult time. A: Liu is a 75 year old male admitted to [facility] on 07/05/21 with Covid, pneumonia. P: Liu has transitioned to comfort measures, and all aggressive treatment has been stopped. He will remain at [facility] for his end of life care. His daughter, Ernestina (DPOA), has been approved to visit him before he passes. CM will continue to support Liu and his family.
[2021-07-10] MEDS: LORazepam 2 MG/ML VIAL IVP ×7 (11:02→23:47)
--- NOTE | 2021-07-10 12:01 | W.PM.PROGNOT ---
Date of Service Date of service: 07/10/21 Time of Service: 12:01 Assessment and Plan Assessment and plan (1) Comfort measures only status: Status: Acute Assessment and plan: Patient is dying secondary to multiple combinations including refractory hypotension, Covid pneumonia, possible bacterial pneumonia, atrial fibrillation. Patient was made comfort measures yesterday at his request and all vasopressors and diltiazem were discontinued after he had a visit with his family. To the staff is surprised the patient has survived the night. He has been medicated on a as needed basis for any apparent discomfort anxiety with as needed dosing of morphine and Ativan. If he requires frequent dosing of morphine then I would consider putting him on a morphine drip. Subjective Subjective Interval history since last seen: Patient remains alive although he is obtunded. His nurse reports that he does seem to grimace when he was bathed and turned in bed. He does not respond to his name and does not open his eyes spontaneously nor when his name is called and he also did not open his eyes for me when I gently shook him and called his name. Exam Narrative Exam Narrative: Patient's respirations appear to be unlabored. He is unresponsive to tactile and verbal stimulation. Lungs with diffusely diminished breath sounds Heart is irregularly irregular but the rate is now slowed Abdomen is nondistended with active bowel sounds Trejo catheter is draining clear yellow urine with a little bit of mucus threads Objective Last Vital Signs Temp 36.1 C L 07/09/21 12:10 Pulse 130 H 07/09/21 14:01 Resp 25 H 07/09/21 14:14 BP 81/43 L 07/09/21 14:01 Pulse Ox 85 L 07/09/21 14:14 Laboratory Results - last 24 hr 07/08/21 15:50 Urine Legionella Ag Negative
[2021-07-10] MEDS: Normal Saline Flush 10 ML SYR IVP ×2 (14:04→23:48)
[2021-07-10] MEDS: Scopolamine 1 MG/3 DAYS PATCH TD (15:25)
[2021-07-10] MEDS: MORPHine 250 MG in Normal Saline 245 ML IV (17:15)
[2021-07-11] VITALS (133 sets, daily range): RESP 20; O2SAT 68–86
[2021-07-11] MEDS: LORazepam 2 MG/ML VIAL IVP ×5 (00:32→16:10)
[2021-07-11] MEDS: Normal Saline Flush 10 ML SYR IVP ×2 (08:00→20:37)
--- NOTE | 2021-07-11 08:46 | W.PM.PROGNOT ---
Date of Service Date of service: 07/11/21 Time of Service: 08:46 Assessment and Plan Assessment and plan (1) Comfort measures only status: Status: Acute Assessment and plan: Patient is on GLASS INSTALLER TECHNICIAN status morphine drip is now at 10 mg an hour this was titrated up overnight by nursing staff because of restlessness when they would turn him. Patient now appears to be moribund and close to . I expect to be eminent. (2) COVID-19: Status: Acute Assessment and plan: As above. Subjective Subjective Interval history since last seen: Patient is unresponsive and appears to be moribund. Exam Narrative Exam Narrative: Respirations are shallow heart tones are present but rate is slowed rather bradycardic and the patient appears to be more upon with some mottling of skin Objective Last Vital Signs Temp 36.1 C L 07/09/21 12:10 Pulse 130 H 07/09/21 14:01 Resp 20 07/11/21 05:30 BP 81/43 L 07/09/21 14:01 Pulse Ox 75 L 07/11/21 04:04 Laboratory Results - last 24 hr 07/08/21 15:50 Urine Legionella Ag Negative
[2021-07-11] MEDS: MORPHine 250 MG in Normal Saline 245 ML 15 MG IV (09:40)
--- NOTE | 2021-07-11 14:38 | CMPROGNOTE_ITS ---
- If Service Date Differs Date of service: 07/11/21 Time of Service: 14:38 Care Management Progress Note S/O: Per report, Liu is on a morphine drip, and appears comfortable. Per provider, he is likely imminently passing. He will remain at [facility] for end of life care. A: Liu is a 75 year old male admitted to [facility] on 07/05/21 with Covid, pneumonia. P: Liu has transitioned to comfort measures, and all aggressive treatment has been stopped. He will remain at [facility] for his end of life care. His daughter, Ernestnia (DPOA), has been approved to visit him before he passes. will continue to support Liu and his family.
--- NOTE | 2021-07-11 18:44 | NUR.NOTE ---
Pharm called ([facility]) confirmed change in concentration and order protocols -upper limit removed, higher concentration, etelvina boluses. Pharm delivered new morphine bag but rn's both occupied. Note left by [facility] Ignore comment to call provider when upper limit reached - is aware , forgot to delete. -[facility] pharm order edited to delete ,
[2021-07-12] MEDS: LORazepam 2 MG/ML VIAL IVP ×3 (07:27→10:04)
[2021-07-12] MEDS: Normal Saline Flush 10 ML SYR IVP ×2 (07:28→10:05)
--- NOTE | 2021-07-12 09:24 | PDOC.CMPRO ---
- If Service Date Differs Date of service: 07/12/21 Time of Service: 09:24 Care Management Progress Note S/O: Per report, Liu is on a morphine drip, and appears comfortable. Per provider, he is likely imminently passing. He will remain at [facility] for end of life care. A: Liu is a 75 year old male admitted to [facility] on 07/05/21 with Covid, pneumonia. P: Liu has transitioned to comfort measures, and all aggressive treatment has been stopped. He will remain at [facility] for his end of life care. His daughter, Ernestina (DPOA), has been approved to visit him before he passes. will continue to support Liu and his family. Liu at 10:28 this morning. Injection Molding Machine Tender notified his family (Zeynep and Ernestina Posey). Final arrangements are will [facility] in [place].
[2021-07-12 10:08] VITALS: RESP 30
--- NOTE | 2021-07-13 13:28 | EXPE_ITS ---
Date of service: 07/12/21 Time of Service: 11:00 Discharge Sum: Prov Provider Consults: 07/08/21 16:41 Palliative Care Consult [CONS] Routine Consultation Status:: Contact made by MD Clarification:: Manage/follow per spec. Reason for consult:: assist patient and his daughter (who reportedly is his DPOA) to determine goals of care, assist w/ decision making regarding code status; complete COLST form if patient and daughter are agreeable to this Discharge Sum: Diag Contributing Factors (1) Comfort measures only status: (2) COVID-19: Discharge Sum: Summary Date and Time Admission Date: 07/05/2111/11/21 04:36 Date of : 07/12/21 Time of : 10:26 Summary Details: 75-year-old white male with his tory of COPD, status post chronic tracheostomy, anemia, chronic kidney disease, hypertension, coronary artery disease, cirrhosis, chronic alcohol abuse who presented to [facility] emergency department on the evening of 07/04/2021 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 He is unvaccinated for COVID-19 and he was worked up and treated at [facility] and found to have acute kidney injury in the setting of his chronic kidney disease with a creatinine 3.5 BUN of 72 and chest x-ray showed bibasilar opacities concerning for pneumonia. Blood cultures were obtained patient was given IV fluids and started on antibiotics including 1 g ceftriaxone and 500 mg azithromycin. Patient refused COVID-19 testing and was advised to be admitted for treatment of his acute kidney injury pneumonia but he declined admission at [facility] and drove himself to [facility] emergency department where he was eventually tested for COVID-19 and found to be positive for SARS-CoV-2. As the patient was out of the window for monoclonal antibiotic treatment it was recommended to be hospitalized and started on Decadron and Remdesivir. It was also recommended they continue antimicrobial therapy for community-acquired pneumonia. He was started on IV fluids and given Decadron and Remdesivir and antibiotics were continued. Ceftriaxone and azithromycin were continued and MDI bronchodilators were ordered along with supplemental oxygen via trach mask. Acute kidney injury was initially treated with IV fluids but because of his COVID-19 fluids were discontinued. Hospital course was complicated in that he developed hypotension and rapid atrial fibrillation required transfer to the intensive care unit required additional fluid boluses and started on a diltiazem drip. Because of persistent hypotension he required vasopressors including initially phenylephrine which was then changed to norepinephrine and vasopressin was added. In spite of this he had persistent hypotension he was treated with parenteral corticosteroids and his antibiotic treatment was broadened to meropenem and vancomycin. While in the intensive care unit he was complained of left upper quadrant abdominal pain. Renal ultrasound was obtained and apparently the guest services officer can only image the right kidney which showed cysts and no obstructive uropathy left kidney was not imaged so a CT scan of the abdomen pelvis was ordered this demonstrated a 7 mm stone obstructing the left ureteropelvic junction. CT also showed patchy multifocal bibasilar pneumonia. Dr. Edmond Camacho was consulted and the patient underwent cystoscopy ureteroscopy and stent placement for an obstructive uropathy. Blood and urine cultures came back no growth MRSA screen was neg ative. In spite of his antibiotics being broadened to meropenem and vancomycin patient did not improve. Palliative care consult was obtained with Dr. Elva Moffett who met with the patient and also the patient's daughter and the patient's daughter's significant other. Liu expressed to Dr. Moffett that he was tired of going through treatments and that he wanted to get off of all medications even though he knew that taking him off life supporting medications would ultimately lead to his . Patient was requiring high flow oxygen to maintain his oxygen saturation but after the patient made it clear that he wanted to be DNR/DNI and was requesting comfort measures only we honored his wishes and discontinued all supportive care removing the vasopressors and antibiotics. Patient was given as needed boluses of morphine as needed for dyspnea or discomfort and as needed doses of Ativan for anxiety. Eventually he did require a continuous morphine drip to ease his discomfort. Patient on July 12, 2021 at 10:26 AM. Patient was pronounced by Ruth Marquez DNP, RN at 10:28 AM. Family was present and aware of his . Patient was not a medical claims examiner case. [place] donor services were notified of the patient's . Body was released to [facility]. Additional Data Confirmation of as documented by pronouncing clinician: no pulse, no respirations and no heart sounds Family: at bedside Attending/PCP notified?: Yes Attending Physician: Michael Mcdowell Was code activated?: No Autopsy requested?: No finished cloth examiner notified?: No Organ bank notified?: Yes Advance directives: Yes Hospice patient?: No
== END 2021-07-12 10:55 | disposition expired | DRG 177 ==
LOC: ER 05:14 → MS 05:38 → ICU 23:32 → MS 07-11 18:58
PROVIDERS: Family Medicine; Urology; Admitting Provider Internal Medicine; Emergency Provider Student in an Organized Health Care Education/Training Program; Visit Provider Internal Medicine
PROC: 0T9780Z Drainage of Left Ureter with Drainage Device, Via Natural or Artificial Opening Endoscopic (ICD-10-PCS; CPT 52332; principal; 2021-07-07 08:45)
DX: U07.1 COVID-19 (principal); J12.82 Pneumonia due to coronavirus disease 2019; J15.9 Unspecified bacterial pneumonia; N17.9 Acute kidney failure, unspecified; N13.2 Hydronephrosis with renal and ureteral calculous obstruction; N18.9 Chronic kidney disease, unspecified; I25.10 Atherosclerotic heart disease of native coronary artery without angina pectoris; F10.10 Alcohol abuse, uncomplicated; D64.9 Anemia, unspecified; I12.9 Hypertensive chronic kidney disease with stage 1 through stage 4 chronic kidney disease, or unspecified chronic kidney disease; K74.60 Unspecified cirrhosis of liver; I48.91 Unspecified atrial fibrillation; I95.9 Hypotension, unspecified; Z93.0 Tracheostomy status; E87.79 Other fluid overload; J42 Unspecified chronic bronchitis; Z66 Do not resuscitate; F17.210 Nicotine dependence, cigarettes, uncomplicated; Z51.5 Encounter for palliative care
CPT/HCPCS: 52332; 36415; 36569; 71045; 76770; 80048; 80053; 80061; 80307; 82805; 84145; 85027; 86704; 86706; 86803; 86850; 86900; 86901; 87040; 87081; 87340; 87389; 87449; 87493; 87635; 94640; 96361; 96374; 99222; 99232; 99233; 99285; 74176; 74420; 80162; 81003; 81015; 82728; 83605; 83735; 83880; 84100; 84439; 84443; 84484; 85025; 85379; 85610; 85730; 86140; 87070; 87086; 87205; 87581; 87899; 93005; 93010; 99217; 99223; 99231; 99238; 99284; 99291; J0696; J1100; J1160; J1644; J1940; J2060; J2250; J2270; J2370; J3360; J3480; J3490; Q9967

== ENCOUNTER → 2021-07-06 13:05 | Outpatient (BNVA) | payer MEDICARE, MEDICAID, SELFPAY | PROVIDERS: Visit Provider Urology | DX: R69 Illness, unspecified (principal) ==